=== PATIENT | female | born 1955 ===

== ENCOUNTER 2017-11-18 19:28 | Inpatient (IN) | payer MEDICAID, OTHER ==
[2017-11-18 19:42] VITALS: BMI 29.7
--- NOTE | 2017-11-18 19:46 | ED PDOC ---
"Arrival/HPI - General Historian: Patient - History of Present Illness Time/Duration: < week Symptom Onset: Gradual Symptom Course: Unchanged Quality: Burning <Anoop Dubois - Last Filed: 11/18/17 22:03> - General Historian: Patient <Isaias Carter - Last Filed: 11/18/17 22:21> - General Time Seen by Provider: 11/18/17 19:34 - History of Present Illness Narrative History of Present Illness (Text): Patient is a 62 year old female with a past medical history of diabetes, gastritis, hypertension and hypercholesterolemia is presenting to the emergency room with a complaint of left sided abdominal pain. She has been experiencing left sided abdominal pain for years but over the past couple of days the pain has started to go down the back of her left leg. The last time she experienced these symptoms, she was seen in the ED in 05/2017 and was diagnosed with a UTI. She denies any fevers, chills, nausea, vomiting, diarrhea, constipation, chest pain, shortness of breath, burning with urination, increased urinary frequency, blood in urine/stool, melena, numbness or tingling. (Anoop Dubois) Past Medical History - Provider Review Nursing Documentation Reviewed: Yes <Anoop Dubois - Last Filed: 11/18/17 22:03> Family/Social History - Physician Review Nursing Documentation Reviewed: Yes Family/Social History: Unknown Family HX <Anoop Dubois - Last Filed: 11/18/17 22:03> Allergies/Home Meds <Anoop Dubois - Last Filed: 11/18/17 22:03> <Isaias Carter - Last Filed: 11/18/17 22:21> Allergies/Adverse Reactions: Allergies No Known Allergies Allergy (Verified 11/18/17 19:42) Home Medications: Home Meds Medication Instructions Recorded Confirmed Atorvastatin [Lipitor] 1 tab PO DAILY 11/18/17 11/18/17 Losartan Potassium [Losartan 1 tab PO TID 11/18/17 11/18/17 Potassium] Naproxen Sodium [Aleve] 1 tab PO PRN PRN 11/18/17 11/18/17 Sitagliptin Phos/Metformin HCl 1 tab PO BID 11/18/17 11/18/17 [Janumet 50-1,000 mg Tablet] Review of Systems - Physician Review All systems were reviewed & negative as marked: Yes - Review of Systems Constitutional: Normal. absent: Fevers ENT: Normal. absent: Sore Throat, Sinus Congestion Respiratory: Normal. absent: SOB Cardiovascular: Normal. absent: Chest Pain, Calf Pain Gastrointestinal: Abdominal Pain. absent: Constipation, Diarrhea, Nausea, Vomiting, Hematochezia, Hematemesis Genitourinary Female: Normal. absent: Dysuria, Frequency, Hematuria Musculoskeletal: Back Pain (left low back) Skin: Normal. absent: Rash Neurological: Normal. absent: Headache Endocrine: Normal. absent: Diaphoresis Psychiatric: Normal <Anoop Dubois - Last Filed: 11/18/17 22:03> Physical Exam Vital Signs Reviewed: Yes Temperature: Afebrile Blood Pressure: Normal Pulse: Regular Respiratory Rate: Normal Appearance: Positive for: Well-Appearing, Non-Toxic, Comfortable Pain Distress: None Mental Status: Positive for: Alert and Oriented X 3 - Systems Exam Head: Present: Atraumatic, Normocephalic Extroacular Muscles: Present: EOMI Conjunctiva: Present: Normal Mouth: Present: Moist Mucous Membranes Nose (External): Present: Atraumatic Neck: Present: Normal Range of Motion Respiratory/Chest: Present: Clear to Auscultation, Good Air Exchange. No: Respiratory Distress, Accessory Muscle Use Cardiovascular: Present: Regular Rate and Rhythm, Normal S1, S2. No: Murmurs Abdomen: Present: Tenderness (LLQ> suprapubic/left mid ). No: Distention, Peritoneal Signs, Rebound, Guarding Back: Present: CVA Tenderness (left side only). No: Midline Tenderness, Paraspinal Tenderness Upper Extremity: Present: Normal Inspection. No: Cyanosis, Edema Lower Extremity: Present: Normal Inspection, NORMAL PULSES. No: Edema, CALF TENDERNESS Neurological: Present: GCS=15, Speech Normal, Motor Func Grossly Intact Skin: Present: Warm, Dry, Normal Color. No: Rashes Psychiatric: Present: Alert, Oriented x 3, Normal Insight, Normal Concentration <Anoop Dubois - Last Filed: 11/18/17 22:03> Vital Signs Temp Pulse Resp BP Pulse Ox 11/18/17 19:43 97.7 F 91 H 18 150/83 96 Medical Decision Making - Lab Interpretations I have reviewed the lab results: Yes Interpretation: Abnormal lab values - RAD Interpretation Chemical Dependency Attendant: Radiologist <Anoop Dubois - Last Filed: 11/18/17 22:03> - Lab Interpretations I have reviewed the lab results: Yes <Isaias Carter - Last Filed: 11/18/17 22:21> ED Course and Treatment: 11/18/17 20:08 Pleasant appearing female with similar complaints when seen in May 2017 - diagnosed with UTI. Labs Abd/Pel CT w/o - r/o stones/diverticulitis No indication for pain medicine at this time. 11/18/17 22:[address] negative - pancreas poorly visualized. Patient reports increased worsening of pain Toradol 30mg IVP given Discussed case with Dr. Cortés, accepted for observation of pancreatitis. (Anoop Dubois) 11/18/17 Patient Seen With Resident: In agreement with resident note which contains more details about the patient. Patient was seen and evaluated with resident. Came up with plan and treatment together. 11/18/17 22:[address] Cortés, who is aware and agrees with plan. Accepts pt in to hospitalist service. Pt will go to [facility] observation for pancreatitis. resident care associate notified. (Isaias Carter) - Lab Interpretations Lab Results: 11/18/17 20:08 11/18/17 20:08 Lab Results 11/18/17 20:08: Sodium 138, Potassium 4.4, Chloride 105, Carbon Dioxide 25, Anion Gap 12, BUN 18, Creatinine 0.6 L, Est GFR ( Amer) > 60, Est GFR ( Non-Af Amer) > 60, Random Glucose 195 H, Calcium 8.7, Magnesium 1.9, Total Bilirubin 0.6, AST 50 H, ALT 62 H, Alkaline Phosphatase 112, Total Protein 7.6, Albumin 3.9, Globulin 3.7, Albumin/Globulin Ratio 1.1, Lipase 766 H 11/18/17 20:08: WBC 6.2, RBC 4.78, Hgb 12.9, Hct 39.1, MCV 81.8, MCH 27.0, MCHC 33.0, RDW 14.1, Plt Count 212, MPV 8.8, Gran % 53.8, Lymph % (Auto) 36.1 H, Dickens % (Auto) 6.5 H, Eos % (Auto) 3.1, Baso % (Auto) 0.5, Gran # 3.34, Lymph # ( Auto) 2.2, Dickens # (Auto) 0.4, Eos # (Auto) 0.2, Baso # (Auto) 0.03 11/18/17 20:00: Urine Color Yellow, Urine Appearance Clear, Urine pH 6.0, Ur Specific [place] 1.025, Urine Protein Negative, Urine Glucose (UA) Negative, Urine Ketones Negative, Urine Blood Negative, Urine Nitrate Negative, Urine Bilirubin Negative, Urine Urobilinogen 0.2, Ur Leukocyte Esterase Small H, Urine RBC Negative, Urine WBC 2 - 5, Ur Epithelial Cells 3 - 4, Urine Bacteria Few - RAD Interpretation Narrative RAD Interpretations (Text): 11/18/17 21:44 [facility] Preliminary Radiology Report Call: [phone] assistance Online chat: [email or web address] Patient Name: JERRY AGOSTO Institution Name: [place] [address] Study Type: CT ABDOMEN/PELVIS WO Ordered As: CT ABD PELVIS W O PO OR IV CONT Date of Dictation: 18 Nov 2017 EDT Date of Exam: 18 Nov 2017 EDT Account Number: Patient : 1955 Patient Location: ED Irrigator Head: Account #: Referring Physician: Anoop DUBOIS This interpretation is based upon the receipt of 634 images. Page 1 of 2 EXAM: CT Abdomen and Pelvis Without Intravenous Contrast CLINICAL HISTORY: 62 years old, female; Pain; Abdominal pain; Flank; Left; Additional info: L sided abd pain TECHNIQUE: Axial computed tomography images of the abdomen and pelvis without intravenous contrast. All CT scans at this facility use at least one of these dose optimization techniques: automated exposure control; mA and/or kV adjustment per patient size (includes targeted exams where dose is matched to clinical indication); or iterative reconstruction. COMPARISON: No relevant prior studies available. FINDINGS: Limitations: Limited evaluation due to lack of IV contrast. Lung bases: Unremarkable. No mass. No consolidation. ABDOMEN: Liver: The liver is heterogenous in appearance. Gallbladder and bile ducts: Unremarkable. No calcified stones. No ductal dilation. Pancreas: Pancreas evaluation is limited. No ductal dilation. Spleen: Unremarkable. No splenomegaly. Adrenals: Unremarkable. No mass. Kidneys and ureters: Subcentimeter low-density lesion in the kidneys are too small to characterize. No obstructing stones. No hydronephrosis. Stomach and bowel: Bowel evaluation is limited due to lack of distention. No mucosal thickening. PELVIS: Appendix: No findings to suggest acute appendicitis. Bladder: Unremarkable. No stones. Reproductive: Unremarkable as visualized. JERRY AGOSTO | Preliminary Radiology Report COMMERCIAL SINGER (QA) DISCREPANCY? If there is a discrepancy between the preliminary and final interpretation, please notify [email or web address] via [email or web address]. If you do not have access to our QA portal, call our QA team at [phone] CONFIDENTIALITY STATEMENT This report is intended only for the use of the referring physician, and only in accordance with law, If you received this in error, call [phone] Page 2 of 2 ABDOMEN and PELVIS: Intraperitoneal space: Unremarkable. No free air. No significant fluid collection. Bones/joints: Slight anterolisthesis of L5 on S1. No acute fracture. No dislocation. Soft tissues: Unremarkable. Vasculature: Atherosclerotic changes of the aorta. No abdominal aortic aneurysm. Lymph nodes: Unremarkable. No enlarged lymph nodes. IMPRESSION: No acute findings. Thank you for allowing us to participate in the care of your patient. Dictated and Authenticated by: Amelia Douglas MD 11/18/2017 9:31 PM Eastern Time ([place] & [place]) (Anoop Dubois) Radiology Orders: 11/18/17 19:50 ABD & PELVIS W/O PO OR IV CONT [CT] Stat - Medication Orders Current Medication Orders: Discontinued Medications Ketorolac Tromethamine (Toradol) 30 mg IVP STAT STA Stop: 11/18/17 21:57 <Anoop Dubois - Last Filed: 11/18/17 22:03> - PA / SENIOR SALES ADMINISTRATOR / Resident Statement / has reviewed & agrees with the documentation as recorded. / has examined the patient and agrees with the treatment plan. - Scribe Statement The provider has reviewed the documentation as recorded by the Scribe <Isaias Carter - Last Filed: 11/18/17 22:21> - Scribe Statement Romeo Bowser Provider Scribe Attestation: All medical record entries made by the Scribe were at my direction and personally dictated by me. I have reviewed the chart and agree that the record accurately reflects my personal performance of the history, physical exam, medical decision making, and the department course for this patient. I have also personally directed, reviewed, and agree with the discharge instructions and disposition. (Isaias Carter) Disposition/Present on Arrival - Present on Arrival Any Indicators Present on Arrival: Yes History of DVT/PE: No History of Uncontrolled Diabetes: Yes Urinary Catheter: No History of Decub. Ulcer: No - Disposition Have Diagnosis and Disposition been Completed?: Yes Disposition Time: 22:08 Patient Plan: Admission <Anoop Dubois - Last Filed: 11/18/17 22:03> <Isaias Carter - Last Filed: 11/18/17 22:21> - Disposition Diagnosis: Pancreatitis Disposition: HOSPITALIZED Patient Problems: Current Active Problems Problem Status Onset Pancreatitis Acute Condition: GUARDED"
[2017-11-18 20:27] LABS: HEMOGLOBIN 12.9 g/dL (12.0-16.0); MEAN CELL VOLUME 81.8 fl (80.0-105.0); RBC 4.78 10^6/uL (3.5-6.1); WHITE BLOOD COUNT 6.2 10^3/ul (4.5-11.0)
[2017-11-18 20:28] LABS: BASO # 0.03 K/mm3 (0.0-2.0); BASO % 0.5 % (0.0-3.0); EOS # 0.2 (0.0-0.7); EOS % 3.1 % (1.5-5.0); GRAN # 3.34 (1.4-6.5); GRAN % 53.8 % (50.0-68.0); LYMPH # 2.2 (1.2-3.4); LYMPH % 36.1 % (22.0-35.0); MEAN PLATELET VOLUME 8.8 fl (7.0-11.0); MONO # 0.4 (0.1-0.6); MONO % 6.5 % (1.0-6.0); RED CELL DISTRIBUTION WIDTH 14.1 % (11.5-14.5)
[2017-11-18 20:32] LABS: ALB/GLOB RATIO 1.1 (1.1-1.8); ALBUMIN 3.9 g/dL (3.0-4.8); ALT/SGPT 62 U/L (7-56); AST/SGOT 50 U/L (14-36); BLOOD UREA NITROGEN 18 mg/dL (7-21); CALCIUM 8.7 mg/dL (8.4-10.5); GFR AFRICAN-AMERICAN > 60; GFR NON-AFRICAN AMERICAN > 60; LIPASE 766 U/L (23-300)
[2017-11-18 20:40] LABS: URINE APPEARANCE CLEAR (CLEAR); URINE COLOR YELLOW (YELLOW); URINE GLUCOSE (UA) NEGATIVE (NEGATIVE)
[2017-11-18 20:51] LABS: URINE BILIRUBIN NEGATIVE (NEGATIVE); URINE BLOOD NEGATIVE (NEGATIVE); URINE LEUKOCYTE ESTERASE SMALL Leu/uL (NEGATIVE); URINE PROTEIN NEGATIVE mg/dL (<30 mg/dL); URINE UROBILINOGEN 0.2 E.U./dL (<1 E.U./dL)
[2017-11-18 21:08] LABS: URINE BACTERIA FEW (NEG); URINE RBC NEGATIVE /hpf (0-2)
[2017-11-18] MEDS ORDERED: Morphine 2 mg/ml ISec IVP PRN (22:44)
--- NOTE | 2017-11-18 23:24 | CP.PCM.HP ---
<TazLuis - Last Filed: 11/19/17 02:06> History of Present Illness - History of Present Illness History of Present Illness: LUIS CHURCHILL D.O. PGY-1, HISTORY & PHYSICAL PROGRESS NOTE FOR HOSPITALIST TEAM CC: Abdominal pain associated with back pain x 3 days 62 y/o panamanian speaking F with pmhx of Diverticulosis, Diverticulitis, DM, HTN, HLD presents to ED with complaints of LLQ abdominal pain that she describes as "colon pain" that she has noticed for the past 3 days. She describes it as a severe constant, non-radiating pain, aggravated with palpation and not alleviated with anything. She states she has had similar pain like this previously when she was previously diagnosed with diverticulitis. She denies any new food consumption, recent travel or recent illness. She denies fevers, chills, nausea, vomiting, headache, dizziness, chest pain, palpitations, constipation, diarrhea. PMD: None. [facility] for med refills PMH: Diverticulosis, Diverticulitis, HTN, DM, HLD PSH: Denies SH: Denies smoking, alcohol, drug use Allergies: NKDA Meds: Present on Admission - Present on Admission Any Indicators Present on Admission: No Review of Systems - Review of Systems All systems: reviewed and no additional remarkable complaints except (as per HPI , otherwise negative) Past Patient History - Past Social History Smoking Status: Never Smoked - CARDIAC Hx Hypertension: Yes - ENDOCRINE/METABOLIC Hx Diabetes Mellitus Type 1: Yes - PSYCHIATRIC Hx Substance Use: No - SURGICAL HISTORY Hx Surgeries: No - ANESTHESIA Hx Anesthesia: No Meds Allergies/Adverse Reactions: Allergies Allergy/AdvReac Type Severity Reaction Status Date / Time No Known Allergies Allergy Verified 11/18/17 19:42 Physical Exam - Constitutional Appears: Well, Non-toxic, No Acute Distress - Head Exam Head Exam: ATRAUMATIC, NORMAL INSPECTION - Eye Exam Eye Exam: EOMI, Normal appearance - ENT Exam ENT Exam: Mucous Membranes Moist, Normal Exam - Neck Exam Neck exam: Positive for: Normal Inspection. Negative for: Meningismus - Respiratory Exam Respiratory Exam: Clear to Auscultation Bilateral, NORMAL BREATHING PATTERN - Cardiovascular Exam Cardiovascular Exam: REGULAR RHYTHM, +S1, +S2 - GI/Abdominal Exam GI & Abdominal Exam: Normal Bowel Sounds, Soft, Tenderness (LLQ to palpation). absent: Rebound, Rigid - Extremities Exam Extremities exam: Positive for: normal inspection. Negative for: calf tenderness, joint swelling, pedal edema - Neurological Exam Neurological exam: Alert, Oriented x3 - Psychiatric Exam Psychiatric exam: Normal Affect, Normal Mood - Skin Skin Exam: Dry, Intact, Warm Results - Vital Signs Recent Vital Signs: Last Vital Signs Temp 97.7 F 11/18/17 19:43 Pulse 81 11/18/17 22:48 Resp 18 11/18/17 22:48 BP 122/75 11/18/17 22:48 Pulse Ox 98 11/18/17 23:03 - Labs Result Diagrams: 11/18/17 20:08 11/18/17 20:08 Assessment & Plan - Assessment and Plan (Free Text) Assessment: 62 y/o panamanian speaking F with pmhx of Diverticulosis, Diverticulitis, DM, HTN, HLD admitted to abdominal pain secondary to pancreatitis vs diverticulitis. Plan: Abdominal Pain Lipase: 766, CT Abdomen: Pancreas evaluation is limited. No ductal dilation. No acute findings. Likely secondary to diverticulitis. Pancreatitis less likely Start ceftriaxone, metronidazole Start NaCl @100mL Start Morphine 2mg IVP Q4Hprn f/u am amylase/lipase f/u Abd/Pelvis U/S GI consult: Elena NPO Diet DM Start medium dose insulin sliding scale fingerstick bs q6H HTN Hold home losartan HLD Hold home atorvastatin f/u lipid panel DVT/GI ppx: Lovenox/Protonix <Dusty Cortés - Last Filed: 11/19/17 02:34> Results - Vital Signs Recent Vital Signs: Last Vital Signs Temp 97.3 F L 11/18/17 23:27 Pulse 73 11/18/17 23:27 Resp 18 11/18/17 23:27 BP 140/76 11/18/17 23:27 Pulse Ox 98 11/18/17 23:03 - Labs Result Diagrams: 11/18/17 20:08 11/18/17 20:08 Labs: Laboratory Results - last 24 hr 11/19/17 00:05 POC Glucose (mg/dL) 156 H Attending/Attestation - Attestation I have personally seen and examined this patient.: Yes I have fully participated in the care of the patient.: Yes I have reviewed all pertinent clinical information: Yes Notes (Text): 11/19/17 01:06 Patient was seen when she was in bed # 6 in the ER. Agree with history ,physical examination, assessment and plan. 62 year old woman with complaints of left side pain luq pain llq pain constipation nausea Elevated lipase level 766 AST50 ALT62 Glucose 195 PMH: HTN DM HLD History of UTI Overweight 29.7BMI Hx of colonoscopy Alcohol use ocassionally PMD -Elodia Hill. 11/19/17 02:34 Note was reviewed again.
[2017-11-18] MEDS ORDERED: Sodium Chloride 0.9% 1,000 ML IV SCH (23:30)
[2017-11-19] MEDS: Insulin Reg-MEDIUM-Coverage SC SCH ×5 (06:00→23:36)
[2017-11-19] MEDS: metroNIDAZOLE IV 500 mg/100 ml 500 MG/100 ML BAG IVPB SCH ×3 (06:33→21:07)
[2017-11-19 06:53] LABS: BASO # 0.02 K/mm3 (0.0-2.0); BASO % 0.4 % (0.0-3.0); EOS # 0.2 (0.0-0.7); EOS % 3.8 % (1.5-5.0); GRAN # 2.83 (1.4-6.5); HEMOGLOBIN 12.3 g/dL (12.0-16.0); LYMPH % 35.1 % (22.0-35.0); MEAN CELL VOLUME 82.2 fl (80.0-105.0); MEAN CORPUSCULAR HEMOGLOBIN 26.4 pg (25.0-35.0); MEAN CORPUSCULAR HGB CONC 32.1 g/dl (31.0-37.0); MEAN PLATELET VOLUME 8.9 fl (7.0-11.0); MONO # 0.5 (0.1-0.6); MONO % 9.7 % (1.0-6.0); RBC 4.66 10^6/uL (3.5-6.1); RED CELL DISTRIBUTION WIDTH 14.3 % (11.5-14.5); WHITE BLOOD COUNT 5.6 10^3/ul (4.5-11.0)
[2017-11-19 07:12] LABS: LDL CHOLESTEROL 75 mg/dL (0-129)
[2017-11-19 07:17] LABS: ALB/GLOB RATIO 1.1 (1.1-1.8); ALBUMIN 3.6 g/dL (3.0-4.8); ALT/SGPT 55 U/L (7-56); AMYLASE 96 U/L (35-125); AST/SGOT 48 U/L (14-36); BLOOD UREA NITROGEN 17 mg/dL (7-21); CALCIUM 8.5 mg/dL (8.4-10.5); GFR AFRICAN-AMERICAN > 60; GFR NON-AFRICAN AMERICAN > 60; HDL CHOLESTEROL 36 mg/dL (29-60); LIPASE 129 U/L (23-300)
--- NOTE | 2017-11-19 08:10 | CT ---
Date of service: 11/18/2017 PROCEDURE: CT Abdomen and Pelvis without intravenous contrast HISTORY: L sided abd pain COMPARISON: None. TECHNIQUE: Without contrast.. Contrast dose: Radiation dose: Total exam DLP = 459 mGy-cm. This CT exam was performed using one or more of the following dose reduction techniques: Automated exposure control, adjustment of the mA and/or kV according to patient size, and/or use of iterative reconstruction technique. FINDINGS: LOWER THORAX: Unremarkable. LIVER: Unremarkable. No gross lesion or ductal dilatation. GALLBLADDER AND BILE DUCTS: Unremarkable. PANCREAS: Unremarkable. No gross lesion or ductal dilatation. SPLEEN: Unremarkable. ADRENALS: Unremarkable. No mass. KIDNEYS AND URETERS: Unremarkable. No hydronephrosis. No solid mass. VASCULATURE: Unremarkable. No aortic aneurysm. BOWEL: Unremarkable. No obstruction. No gross mural thickening. There is diverticulosis of the sigmoid colon APPENDIX: Unremarkable. Normal appendix. PERITONEUM: Unremarkable. No free fluid. No free air. LYMPH NODES: Unremarkable. No enlarged lymph nodes. BLADDER: Unremarkable. REPRODUCTIVE: Unremarkable. BONES: No acute fracture. OTHER FINDINGS: The report concurs with the preliminary [facility] report IMPRESSION: No acute intra-abdominal findings
--- NOTE | 2017-11-19 08:38 | US ---
Date of service: 11/19/2017 HISTORY: Abdominal pain COMPARISON: None. TECHNIQUE: Grayscale imaging was performed. FINDINGS: LIVER: Measures 14.8 cm in length. There is diffuse increased echogenicity of the liver parenchyma. No mass. No intrahepatic bile duct dilatation. GALLBLADDER: There are no gallstones, wall thickening or pericholecystic fluid. The sonographic Blackwell's sign is negative. COMMON BILE DUCT: Measures 5.5 mm. No stones. No dilatation. PANCREAS: Unremarkable as visualized. No mass. No ductal dilatation. RIGHT KIDNEY: Measures 10.9 cm in length. Normal echogenicity. No calculus, mass, or hydronephrosis. AORTA: No aneurysmal dilatation. IVC: Unremarkable. OTHER FINDINGS: None . IMPRESSION: No cholelithiasis or biliary dilatation Diffuse increased echogenicity in the liver may reflect hepatic steatosis however parenchymal infectious/ inflammatory etiologies cannot be entirely excluded. Clinical and laboratory correlation is advised.
--- NOTE | 2017-11-19 08:49 | CP.PCM.PN ---
<Adama Ryder - Last Filed: 11/19/17 12:18> Subjective - Date & Time of Evaluation Date of Evaluation: 11/19/17 Time of Evaluation: 08:46 - Subjective Subjective: Adama Ryder, PGY-1, Internal Medicine note for Dr. Garvey Patient seen and examined this morning. Patient had no acute overnight events. Patient reports left flank pain, left lower abdominal pain, pain that radiates down the left leg, nausea, and constipation. Patient denies headache, dizziness , chest pain, heart palpitations, shortness of breath, vomiting, diarrhea, dysuria, and hematuria. Objective - Vital Signs/Intake and Output Vital Signs (last 24 hours): Temp Pulse Resp BP Pulse Ox 97.6 F 72 18 134/75 95 11/19/17 06:00 11/19/17 06:00 11/19/17 06:00 11/19/17 06:00 11/19/17 06:00 Intake and Output: 11/19/17 11/19/17 06:59 18:59 Intake Total 360 Balance 360 - Medications Medications: Current Medications Enoxaparin Sodium (Lovenox) 40 mg SC DAILY [facility] PRN Reason: Protocol Metronidazole (Flagyl) 500 mg in 100 mls @ 100 mls/hr IVPB Q8 [facility] PRN Reason: Protocol Last Admin: 11/19/17 06:33 Dose: 100 mls/hr Ceftriaxone Sodium (Rocephin 1 Gram Ivpb) 1 gm in 100 mls @ 100 mls/hr IVPB DAILY [facility] PRN Reason: Protocol Sodium Chloride (Sodium Chloride 0.9%) 1,000 mls @ 60 mls/hr IV .[id number] [facility] Insulin Human Regular (Humulin R Med) 0 units SC Q6 [facility] PRN Reason: Protocol Ketorolac Tromethamine (Toradol) 30 mg IVP Q6H PRN PRN Reason: Pain, moderate (4-7) Morphine Sulfate (Morphine) 2 mg IVP Q4H PRN PRN Reason: Pain, severe (8-10) Pantoprazole Sodium (Protonix Inj) 40 mg IVP DAILY [facility] - Labs Labs: 11/19/17 06:10 11/19/17 06:10 - Constitutional Appears: Well, Non-toxic - Head Exam Head Exam: ATRAUMATIC, NORMOCEPHALIC - Eye Exam Eye Exam: EOMI Pupil Exam: PERRL - ENT Exam ENT Exam: Mucous Membranes Moist - Respiratory Exam Respiratory Exam: Clear to Ausculation Bilateral, NORMAL BREATHING PATTERN - Cardiovascular Exam Cardiovascular Exam: REGULAR RHYTHM, RRR - GI/Abdominal Exam GI & Abdominal Exam: Soft, Tenderness (left lower quadrant), Normal Bowel Sounds - Extremities Exam Extremities Exam: Full ROM Additional comments: trace bilateral lower extremity pitting edema - Back Exam Back Exam: CVA tenderness (L) Additional comments: negative straight leg test - Neurological Exam Neurological Exam: Alert, Awake, CN II-XII Intact, Oriented x3 Neuro motor strength exam: Left Upper Extremity: 5, Right Upper Extremity: 5, Left Lower Extremity: 5, Right Lower Extremity: 5 - Psychiatric Exam Psychiatric exam: Normal Affect, Normal Mood - Skin Skin Exam: Dry, Intact, Normal Color Assessment and Plan - Assessment and Plan (Free Text) Assessment: 62 year old female with past medical history of diverticulitis, diverticulosis, diabetes, hypertension, hyperlipidemia presents with left flank pain, left lower quadrant pain that radiates down left leg for 3 days. Plan: Flank pain and left lower quadrant pain 2/2 to nephrolithiasis vs. musculoskeletal vs. diverticulitis vs. pancreatitis vs. pyelonephritis -Patient has had a history of diverticulitis 6-7 years ago. Patient had a colonoscopy at this time. -Patient has a history of UTIs in the past. -CT Abdomen (11/18): atherosclerosis of aorta, bowel evaluation limited due to lack of distention, no mucosal thickening, pancreas evaluation limited -UA (11/18): small leukocyte esterase, few bacteria, no blood -Gallbladder Ultrasound (11/18): no cholelithiasis, no biliary dilatation. Diffuse echogenicity of liver may reflect hepatic steatosis however parenchymal infectious/inflammatory etiologies cannot be excluded. -Lipase: 766 on 11/18. Today, lipase is 130. -SIRS criteria not fulfilled. Temperature: 97.6, HR: 72, RR: 18, and WBC: 5.6 -Ceftriaxone and metronidazole for possible diverticulitis. -Morphine 2mg IV Q4PRN for pain. -Toradol 30 mg PO Q6PRN for pain. -Patient educated regarding constipation. Patient reports having been educated in the past and has had the appropriate diet. -Patient does not fulfill pancreatitis criteria. CT and clinically negative. Patient had elevated lipase, however. Elevated lipase has resolved. -Dr. Parker consulted for GI evaluation. Follow recommendations. -Per GI, this could be a combination of constipation and diverticulitis. Transamnitis 2/2 to hepatic steatosis vs. atorvastatin use -AST: 48 from 50 on 11/18 -ALT: 55 from 62 on 11/18. Resolved ALT elevation -ALP: 98 from 112 on 11/18. -Bilirubin: 0.5 from 0.6 on 11/18 -Continue to trend. Chronic Constipation -Patient has one bowel movement every other day generally. She continues to have one bowel movement every other day at the hospital. -Miralax 17 gm BID as per GI. -Patient progressed to full liquid diet from clear liquid. History of Diabetes Mellitus Type 2 -Patient's last blood glucose level was 126. -Patient has been placed on a regular insulin regimen Q6 History of Hypertension -Blood pressure on 11/19: 134/75 -Patient is currently not on any medications. History of Hyperlipidemia -CT of abdomen showed atherosclerosis of the aorta -Patient currently not on any medication. Disposition -PMD: [facility] -Patient has applied for [employer]. -Social work consulted for assistance with payment for medical services. Patient seen and evaluated with Dr. Garvey. <Luciano Garvey - Last Filed: 11/21/17 11:37> Objective - Vital Signs/Intake and Output Vital Signs (last 24 hours): Temp Pulse Resp BP Pulse Ox 98.1 F 69 18 155/85 H 96 11/20/17 14:00 11/20/17 14:00 11/20/17 14:00 11/20/17 14:00 11/20/17 14:00 Intake and Output: 11/20/17 11/20/17 06:59 18:59 Intake Total 0 600 Balance 0 600 - Medications Medications: Current Medications Enoxaparin Sodium (Lovenox) 40 mg SC DAILY [facility] PRN Reason: Protocol Last Admin: 11/20/17 09:41 Dose: 40 mg Metronidazole (Flagyl) 500 mg in 100 mls @ 100 mls/hr IVPB Q8 [facility] PRN Reason: Protocol Last Admin: 11/20/17 06:29 Dose: 100 mls/hr Ceftriaxone Sodium (Rocephin 1 Gram Ivpb) 1 gm in 100 mls @ 100 mls/hr IVPB DAILY [facility] PRN Reason: Protocol Last Admin: 11/20/17 09:42 Dose: 100 mls/hr Sodium Chloride (Sodium Chloride 0.9%) 1,000 mls @ 60 mls/hr IV .[id number] [facility] Last Admin: 11/20/17 09:43 Dose: 60 mls/hr Insulin Human Regular (Humulin R Med) 0 units SC Q6 [facility] PRN Reason: Protocol Last Admin: 11/20/17 12:02 Dose: Not Given Ketorolac Tromethamine (Toradol) 30 mg IVP Q6H PRN PRN Reason: Pain, moderate (4-7) Morphine Sulfate (Morphine) 2 mg IVP Q4H PRN PRN Reason: Pain, severe (8-10) Pantoprazole Sodium (Protonix Ec Tab) 40 mg PO 0600 [facility] Last Admin: 11/20/17 06:31 Dose: 40 mg Polyethylene Glycol (Miralax) 17 gm PO BID [facility] Last Admin: 11/20/17 09:41 Dose: 17 gm - Labs Labs: 11/20/17 06:20 11/20/17 06:20 Attending/Attestation - Attestation I have personally seen and examined this patient.: Yes I have fully participated in the care of the patient.: Yes I have reviewed all pertinent clinical information, including history, physical exam and plan: Yes Notes (Text): 11/20/17 15:11 attending note; Patient seen and examined with resident. Patient is a 62-year-old female with a past medical history of diverticulitis, constipation is admitted with left lower quadrant pain. CT scan is consistent with diverticulosis. possible mild diverticulitis suspected. Continue IV fluids. IV pain medication as needed. Started on IV Rocephin and Flagyl. GI evaluation appreciated. Needs outpatient colonoscopy. Patient had a colonoscopy over 7 years ago in [facility] with no significant findings other than diverticulosis. Mildly elevated lipase; less likely pancreatitis. blood, urine culture ordered.. Negative so far. Start clear liquid diet. Advance as tolerated. Upon discharge patient will follow-up with [facility] clinic. Patient will follow up with GI clinic for outpatient colonoscopy. 11/21/17 11:37
--- NOTE | 2017-11-19 09:21 | CP.PCM.CON ---
History of Present Illness - History of Present Illness History of Present Illness: GI Fellow PGY5 Consult Note This is a 62yF with pmhx of diverticulosis and possible diverticulitis 6yrs agio , DM, HTN, HLD who presents to ED with complaints of LLQ abdominal pain for the past 3 days. She describes it as a severe constant, radiating to back, aggravated with palpation and not alleviated with anything. She states she has had similar pain like this previously when she was previously diagnosed with [facility] At that time she had a colonoscopy that was negative per pt, no records for review. She also reports constipation with straining and last BM was 2 days ago. She denies any rectal bleeding. She denies any new food consumption, recent travel or recent illness. She denies fevers, chills, nausea, vomiting, headache, dizziness, chest pain, palpitations , constipation, diarrhea. ROS: A 12pt ROS was negative except as above PMH: As stated above PSH: Denies SH: Denies smoking, alcohol, drug use FH: Neg for colon cancer Past Patient History - Past Social History Smoking Status: Never Smoked - CARDIAC Hx Hypertension: Yes - ENDOCRINE/METABOLIC Hx Diabetes Mellitus Type 1: Yes - MUSCULOSKELETAL/RHEUMATOLOGICAL Hx Falls: No - GASTROINTESTINAL Other/Comment: gastritis - GENITOURINARY/GYNECOLOGICAL Hx Urinary Tract Infection: Yes - PSYCHIATRIC Hx Substance Use: No - SURGICAL HISTORY Hx Surgeries: No - ANESTHESIA Hx Anesthesia: No Meds Allergies/Adverse Reactions: Allergies Allergy/AdvReac Type Severity Reaction Status Date / Time No Known Allergies Allergy Verified 11/18/17 19:42 - Medications Medications: Current Medications Enoxaparin Sodium (Lovenox) 40 mg SC DAILY [facility] PRN Reason: Protocol Metronidazole (Flagyl) 500 mg in 100 mls @ 100 mls/hr IVPB Q8 [facility] PRN Reason: Protocol Last Admin: 11/19/17 06:33 Dose: 100 mls/hr Ceftriaxone Sodium (Rocephin 1 Gram Ivpb) 1 gm in 100 mls @ 100 mls/hr IVPB DAILY [facility] PRN Reason: Protocol Sodium Chloride (Sodium Chloride 0.9%) 1,000 mls @ 60 mls/hr IV .[id number] [facility] Insulin Human Regular (Humulin R Med) 0 units SC Q6 [facility] PRN Reason: Protocol Ketorolac Tromethamine (Toradol) 30 mg IVP Q6H PRN PRN Reason: Pain, moderate (4-7) Morphine Sulfate (Morphine) 2 mg IVP Q4H PRN PRN Reason: Pain, severe (8-10) Pantoprazole Sodium (Protonix Inj) 40 mg IVP DAILY [facility] Polyethylene Glycol (Miralax) 17 gm PO BID [facility] Physical Exam - Constitutional Appears: Non-toxic, No Acute Distress - Head Exam Head Exam: ATRAUMATIC, NORMAL INSPECTION, NORMOCEPHALIC - Eye Exam Eye Exam: EOMI, Normal appearance, PERRL - ENT Exam ENT Exam: Mucous Membranes Moist, Normal Exam - Neck Exam Neck exam: Positive for: Full Rom, Normal Inspection - Respiratory Exam Respiratory Exam: Clear to Auscultation Bilateral, NORMAL BREATHING PATTERN - Cardiovascular Exam Cardiovascular Exam: REGULAR RHYTHM, RRR, +S1, +S2 - GI/Abdominal Exam GI & Abdominal Exam: Normal Bowel Sounds, Soft, Tenderness. absent: Distended, Firm, Guarding, Organomegaly - Rectal Exam Rectal Exam: Deferred - Extremities Exam Extremities exam: Positive for: full ROM, normal inspection - Back Exam Back exam: NORMAL INSPECTION - Neurological Exam Neurological exam: Alert, Oriented x3 - Psychiatric Exam Psychiatric exam: Normal Affect, Normal Mood - Skin Skin Exam: Dry, Intact, Normal Color, Warm Results - Vital Signs Recent Vital Signs: Last Vital Signs Temp 97.6 F 11/19/17 06:00 Pulse 72 11/19/17 06:00 Resp 18 11/19/17 06:00 BP 134/75 11/19/17 06:00 Pulse Ox 95 11/19/17 06:00 - Labs Result Diagrams: 11/19/17 06:10 11/19/17 06:10 Labs: Laboratory Results - last 24 hr 11/19/17 11/19/17 11/19/17 00:05 06:10 06:10 WBC 5.6 RBC 4.66 Hgb 12.3 Hct 38.3 MCV 82.2 MCH 26.4 MCHC 32.1 RDW 14.3 Plt Count 212 MPV 8.9 Gran % 51.0 Lymph % (Auto) 35.1 H Kendall % (Auto) 9.7 H Eos % (Auto) 3.8 Baso % (Auto) 0.4 Gran # 2.83 Lymph # (Auto) 2.0 Kendall # (Auto) 0.5 Eos # (Auto) 0.2 Baso # (Auto) 0.02 Sodium 142 Potassium 4.2 Chloride 106 Carbon Dioxide 28 Anion Gap 13 BUN 17 Creatinine 0.5 L Est GFR ( Amer) > 60 Est GFR (Non-Af Amer) > 60 POC Glucose (mg/dL) 156 H Random Glucose 133 H Calcium 8.5 Phosphorus 3.3 Magnesium 2.1 Total Bilirubin 0.5 AST 48 H ALT 55 Alkaline Phosphatase 98 Total Protein 7.0 Albumin 3.6 Globulin 3.4 Albumin/Globulin Ratio 1.1 Triglycerides 151 Cholesterol 149 LDL Cholesterol Direct 75 HDL Cholesterol 36 Amylase 96 Lipase 129 11/19/17 06:23 WBC RBC Hgb Hct MCV MCH MCHC RDW Plt Count MPV Gran % Lymph % (Auto) Kendall % (Auto) Eos % (Auto) Baso % (Auto) Gran # Lymph # (Auto) Kendall # (Auto) Eos # (Auto) Baso # (Auto) Sodium Potassium Chloride Carbon Dioxide Anion Gap BUN Creatinine Est GFR ( Amer) Est GFR (Non-Af Amer) POC Glucose (mg/dL) 126 H Random Glucose Calcium Phosphorus Magnesium Total Bilirubin AST ALT Alkaline Phosphatase Total Protein Albumin Globulin Albumin/Globulin Ratio Triglycerides Cholesterol LDL Cholesterol Direct HDL Cholesterol Amylase Lipase Assessment & Plan - Assessment and Plan (Free Text) Assessment: This is a 62yF presenting with complaints of left sided abdominal pain for three days. 1. Abdominal pain- constipation vs diverticulitis 2. Constipation 3. Diverticulosis 4. Fatty Liver Plan: -Continue supportive care with pain control and anti-emetics -CT imaging is w/o contrast so difficult to evaluate pancreas and colon, +stool and sigmoid diverticulosis -Abd US negative for gallstones, +hepatic steatosis -LFTs trending down -Pt clinically stable, afebrile with no leukocytosis -Abdominal pain maybe multifactorial from constipation and possible diverticulitis -Recommend bowel regimen with mirlaalx bid -Okay to continue abx at this time -Advance to clear liquid diet -Pt will need outpt colonoscopy in 6-8 weeks -Elevated lipase is nonspecific and has trended down, no dx of pancraetitis -Pt will need to followup at GI clinic -Will continue to follow pt closely
[2017-11-19] MEDS: cefTRIAXone 1 gm 1 GM/100 ML BAG IVPB SCH (10:06)
[2017-11-19] MEDS: Enoxaparin 40 mg Syringe SC SCH (10:06)
[2017-11-19] MEDS: POLYETHYLENE GLYCOL 3350 17 GM/Dose PACKET PO SCH ×2 (10:07→17:09)
[2017-11-19] MEDS: Sodium Chloride 0.9% 1,000 ML IV SCH (10:08)
[2017-11-20] MEDS: metroNIDAZOLE IV 500 mg/100 ml 500 MG/100 ML BAG IVPB SCH ×3 (06:29→21:21)
[2017-11-20] MEDS: Insulin Reg-MEDIUM-Coverage SC SCH ×3 (06:30→18:02)
[2017-11-20] MEDS: Pantoprazole 40 mg EC Tab PO SCH (06:31)
[2017-11-20 07:04] LABS: BASO # 0.02 K/mm3 (0.0-2.0); BASO % 0.4 % (0.0-3.0); EOS # 0.2 (0.0-0.7); EOS % 3.8 % (1.5-5.0); GRAN # 2.3 (1.4-6.5); GRAN % 48.5 % (50.0-68.0); HEMOGLOBIN 12.7 g/dL (12.0-16.0); LYMPH # 1.8 (1.2-3.4); LYMPH % 38.2 % (22.0-35.0); MEAN CELL VOLUME 81.9 fl (80.0-105.0); MEAN CORPUSCULAR HEMOGLOBIN 26.5 pg (25.0-35.0); MEAN CORPUSCULAR HGB CONC 32.3 g/dl (31.0-37.0); MEAN PLATELET VOLUME 8.8 fl (7.0-11.0); MONO # 0.4 (0.1-0.6); MONO % 9.1 % (1.0-6.0); RBC 4.8 10^6/uL (3.5-6.1); RED CELL DISTRIBUTION WIDTH 14.2 % (11.5-14.5); WHITE BLOOD COUNT 4.7 10^3/ul (4.5-11.0)
[2017-11-20 07:30] LABS: ALB/GLOB RATIO 1.1 (1.1-1.8); ALBUMIN 3.7 g/dL (3.0-4.8); ALT/SGPT 74 U/L (7-56); AST/SGOT 60 U/L (14-36); BLOOD UREA NITROGEN 11 mg/dL (7-21); CALCIUM 8.7 mg/dL (8.4-10.5); GFR AFRICAN-AMERICAN > 60; GFR NON-AFRICAN AMERICAN > 60
--- NOTE | 2017-11-20 09:24 | CP.PCM.PN ---
<Adama Ryder - Last Filed: 11/20/17 14:57> Subjective - Date & Time of Evaluation Date of Evaluation: 11/20/17 Time of Evaluation: 09:21 - Subjective Subjective: Adama Ryder, PGY-1, Internal Medicine note for Dr. Garvey Patient seen and examined at bedside. No acute overnight events. Patient reports left lower quadrant abdominal pain, frontal headache with no radiation, malodor of urine, and constipation (last bowel movement was 3 days ago). Patient denies dizziness, fever, chest pain, heart palpitations, shortness of breath, nausea, vomiting, diarrhea, dysuria, and hematuria. Objective - Vital Signs/Intake and Output Vital Signs (last 24 hours): Temp Pulse Resp BP Pulse Ox 98 F 62 20 136/75 98 11/20/17 06:00 11/20/17 06:00 11/20/17 06:00 11/20/17 06:00 11/20/17 06:00 Intake and Output: 11/20/17 11/20/17 06:59 18:59 Intake Total 0 Balance 0 - Medications Medications: Current Medications Enoxaparin Sodium (Lovenox) 40 mg SC DAILY [facility] PRN Reason: Protocol Last Admin: 11/19/17 10:06 Dose: 40 mg Metronidazole (Flagyl) 500 mg in 100 mls @ 100 mls/hr IVPB Q8 [facility] PRN Reason: Protocol Last Admin: 11/20/17 06:29 Dose: 100 mls/hr Ceftriaxone Sodium (Rocephin 1 Gram Ivpb) 1 gm in 100 mls @ 100 mls/hr IVPB DAILY [facility] PRN Reason: Protocol Last Admin: 11/19/17 10:06 Dose: 100 mls/hr Sodium Chloride (Sodium Chloride 0.9%) 1,000 mls @ 60 mls/hr IV .[id number] [facility] Last Admin: 11/19/17 10:08 Dose: 60 mls/hr Insulin Human Regular (Humulin R Med) 0 units SC Q6 [facility] PRN Reason: Protocol Last Admin: 11/20/17 06:30 Dose: Not Given Ketorolac Tromethamine (Toradol) 30 mg IVP Q6H PRN PRN Reason: Pain, moderate (4-7) Morphine Sulfate (Morphine) 2 mg IVP Q4H PRN PRN Reason: Pain, severe (8-10) Pantoprazole Sodium (Protonix Ec Tab) 40 mg PO 0600 [facility] Last Admin: 11/20/17 06:31 Dose: 40 mg Polyethylene Glycol (Miralax) 17 gm PO BID [facility] Last Admin: 11/19/17 17:09 Dose: 17 gm - Labs Labs: 11/20/17 06:20 11/20/17 06:20 - Constitutional Appears: Well - Head Exam Head Exam: ATRAUMATIC, NORMOCEPHALIC - Eye Exam Eye Exam: EOMI, PERRL - Respiratory Exam Respiratory Exam: Clear to Ausculation Bilateral, NORMAL BREATHING PATTERN - Cardiovascular Exam Cardiovascular Exam: REGULAR RHYTHM - GI/Abdominal Exam GI & Abdominal Exam: Soft, Tenderness (LLQ improved from yesterday. No guarding or rebound.), Normal Bowel Sounds - Extremities Exam Extremities Exam: Full ROM - Back Exam Back Exam: absent: CVA tenderness (L), CVA tenderness (R) - Neurological Exam Neurological Exam: Alert, Awake, CN II-XII Intact, Oriented x3 Neuro motor strength exam: Left Upper Extremity: 5, Right Upper Extremity: 5, Left Lower Extremity: 5, Right Lower Extremity: 5 - Psychiatric Exam Psychiatric exam: Normal Affect, Normal Mood - Skin Skin Exam: Dry, Intact, Normal Color Assessment and Plan - Assessment and Plan (Free Text) Assessment: 62 year old female with past medical history of diverticulitis, diverticulosis, diabetes, hypertension, hyperlipidemia presents with left lower quadrant pain, malodor of urine, and constipation. Plan: Diverticulitis -CT Abdomen (11/18): atherosclerosis of aorta, bowel evaluation limited due to lack of distention, no mucosal thickening, pancreas evaluation limited -UA (11/18): small leukocyte esterase, few bacteria, no blood -Gallbladder Ultrasound (11/18): no cholelithiasis, no biliary dilatation. Diffuse echogenicity of liver may reflect hepatic steatosis however parenchymal infectious/inflammatory etiologies cannot be excluded. -Lipase: 766 on 11/18. Yesterday, lipase is 130. -Ceftriaxone and metronidazole for possible diverticulitis. -Patient will be discharged with ciprofloaxicin 500 mg PO BID and flagyl 500 mg PO TID. -Morphine 2mg IV Q4PRN for pain. -Toradol 30 mg PO Q6PRN for pain. -Patient educated regarding constipation. Patient reports having been educated in the past and has had the appropriate diet. -Per GI, this could be a combination of constipation and diverticulitis. Patient should receive outpatient colonoscopy at 6-8 weeks at the [facility]. Patient can be progressed to soft diet tomorrow if tolerating diet. Patient on bowel regimen of miralax 17 gm BID. -Patient should follow up with [facility] for evaluation of lower abdominal pain. Transamnitis 2/2 to hepatic steatosis vs. atorvastatin use -AST: 60 from 48 on 11/19 -ALT: 74 from 55 on 11/19. Resolved ALT elevation -ALP: 94 from 98 on 11/19. -Bilirubin: 0.6 from 0.5 on 11/19 -Continue to trend. Chronic Constipation -Patient has one bowel movement every day generally. Patient has not had bowel movement in 3 days. -Miralax 17 gm BID as per GI. -Patient progressed to full liquid diet from clear liquid. -Patient tolerating full liquid diet. Patient's diet will be advanced tomorrow to soft diet if patient continues to tolerate diet as per GI. History of Diabetes Mellitus Type 2 -Patient's last blood glucose level was 148. -Patient has been placed on a regular insulin regimen Q6 History of Hypertension -Blood pressure on 11/20: 155/85 -Patient is currently not on any medications. History of Hyperlipidemia -CT of abdomen showed atherosclerosis of the aorta -Patient currently not on any medication. Disposition -PMD: [facility] -Patient has applied for [facility]. -Social work consulted for assistance with payment for medical services. -Patient for discharge tomorrow as per GI. -[facility] clinic appointment: 11/30/17 at 3:30pm. Patient seen and evaluated with Dr. Garvey. <Luciano Garvey - Last Filed: 11/21/17 11:43> Objective - Vital Signs/Intake and Output Vital Signs (last 24 hours): Temp Pulse Resp BP Pulse Ox 97.8 F 66 18 129/71 94 L 11/21/17 07:41 11/21/17 07:41 11/21/17 07:41 11/21/17 07:41 11/21/17 07:41 Intake and Output: 11/21/17 11/21/17 06:59 18:59 Intake Total 900 Balance 900 - Medications Medications: Current Medications Enoxaparin Sodium (Lovenox) 40 mg SC DAILY [facility] PRN Reason: Protocol Last Admin: 11/21/17 09:43 Dose: 40 mg Metronidazole (Flagyl) 500 mg in 100 mls @ 100 mls/hr IVPB Q8 [facility] PRN Reason: Protocol Last Admin: 11/21/17 07:28 Dose: 100 mls/hr Ceftriaxone Sodium (Rocephin 1 Gram Ivpb) 1 gm in 100 mls @ 100 mls/hr IVPB DAILY [facility] PRN Reason: Protocol Last Admin: 11/21/17 09:44 Dose: 100 mls/hr Sodium Chloride (Sodium Chloride 0.9%) 1,000 mls @ 60 mls/hr IV .[id number] [facility] Last Admin: 11/21/17 07:29 Dose: 60 mls/hr Insulin Human Regular (Humulin R Med) 0 units SC Q6 [facility] PRN Reason: Protocol Last Admin: 11/21/17 07:55 Dose: 1 units Ketorolac Tromethamine (Toradol) 30 mg IVP Q6H PRN PRN Reason: Pain, moderate (4-7) Last Admin: 11/20/17 22:08 Dose: 30 mg Morphine Sulfate (Morphine) 2 mg IVP Q4H PRN PRN Reason: Pain, severe (8-10) Pantoprazole Sodium (Protonix Ec Tab) 40 mg PO 0600 [facility] Last Admin: 11/21/17 07:28 Dose: 40 mg Polyethylene Glycol (Miralax) 17 gm PO BID [facility] Last Admin: 11/21/17 09:43 Dose: 17 gm - Labs Labs: 11/21/17 05:00 11/21/17 05:00 Attending/Attestation - Attestation I have personally seen and examined this patient.: Yes I have fully participated in the care of the patient.: Yes I have reviewed all pertinent clinical information, including history, physical exam and plan: Yes Notes (Text): 11/21/17 11:40 attending note; Patient seen and examined with resident. Abdominal pain is improving. Denies any fevers, chills. Had bowel movement today. Patient is a 62-year-old female with a past medical history of diverticulitis, constipation is admitted with left lower quadrant pain. CT scan is consistent with diverticulosis/ constipation. possible mild diverticulitis suspected. Continue IV fluids. IV pain medication as needed. Started on IV Rocephin and Flagyl. GI evaluation appreciated. Needs outpatient colonoscopy in 6 to 8 weeks. blood, urine culture is negative. Case discussed with daughter by the bedside in detail. Start clear liquid diet. Advance as tolerated. Possible discharge home tomorrow. Upon discharge patient will follow-up with [facility] clinic. Patient will follow up with GI clinic for outpatient colonoscopy. 11/21/17 11:43
[2017-11-20] MEDS: Enoxaparin 40 mg Syringe SC SCH (09:41)
[2017-11-20] MEDS: POLYETHYLENE GLYCOL 3350 17 GM/Dose PACKET PO SCH ×2 (09:41→17:58)
[2017-11-20] MEDS: cefTRIAXone 1 gm 1 GM/100 ML BAG IVPB SCH (09:42)
[2017-11-20] MEDS: Sodium Chloride 0.9% 1,000 ML IV SCH (09:43)
[2017-11-20] MEDS ORDERED: Bisacodyl 5mg EC Tab PO ONE (13:42)
[2017-11-20 14:07] VITALS: RESP 18
--- NOTE | 2017-11-20 14:11 | CP.PCM.PN ---
Subjective - Date & Time of Evaluation Date of Evaluation: 11/20/17 Time of Evaluation: 09:00 - Subjective Subjective: GI Fellow PGY5 Progress Note Pt seen and evaluated at bedside, pt with decreased abdominal pain but still present. No BM on miralax bid,. Tolerating full liquid diet with no N/V, F/C. ROS: A 12pt ROS was negative except as above. Objective - Vital Signs/Intake and Output Vital Signs (last 24 hours): Temp Pulse Resp BP Pulse Ox 98.1 F 69 18 155/85 H 96 11/20/17 14:00 11/20/17 14:00 11/20/17 14:00 11/20/17 14:00 11/20/17 14:00 Intake and Output: 11/20/17 11/20/17 06:59 18:59 Intake Total 0 Balance 0 - Medications Medications: Current Medications Enoxaparin Sodium (Lovenox) 40 mg SC DAILY [facility] PRN Reason: Protocol Last Admin: 11/20/17 09:41 Dose: 40 mg Metronidazole (Flagyl) 500 mg in 100 mls @ 100 mls/hr IVPB Q8 [facility] PRN Reason: Protocol Last Admin: 11/20/17 06:29 Dose: 100 mls/hr Ceftriaxone Sodium (Rocephin 1 Gram Ivpb) 1 gm in 100 mls @ 100 mls/hr IVPB DAILY [facility] PRN Reason: Protocol Last Admin: 11/20/17 09:42 Dose: 100 mls/hr Sodium Chloride (Sodium Chloride 0.9%) 1,000 mls @ 60 mls/hr IV .[id number] [facility] Last Admin: 11/20/17 09:43 Dose: 60 mls/hr Insulin Human Regular (Humulin R Med) 0 units SC Q6 [facility] PRN Reason: Protocol Last Admin: 11/20/17 12:02 Dose: Not Given Ketorolac Tromethamine (Toradol) 30 mg IVP Q6H PRN PRN Reason: Pain, moderate (4-7) Morphine Sulfate (Morphine) 2 mg IVP Q4H PRN PRN Reason: Pain, severe (8-10) Pantoprazole Sodium (Protonix Ec Tab) 40 mg PO 0600 [facility] Last Admin: 11/20/17 06:31 Dose: 40 mg Polyethylene Glycol (Miralax) 17 gm PO BID [facility] Last Admin: 11/20/17 09:41 Dose: 17 gm - Labs Labs: 11/20/17 06:20 11/20/17 06:20 - Constitutional Appears: Non-toxic, No Acute Distress - Head Exam Head Exam: ATRAUMATIC, NORMAL INSPECTION, NORMOCEPHALIC - Eye Exam Eye Exam: EOMI, Normal appearance, PERRL Pupil Exam: PERRL - ENT Exam ENT Exam: Mucous Membranes Moist - Neck Exam Neck Exam: Full ROM, Normal Inspection - Respiratory Exam Respiratory Exam: Clear to Ausculation Bilateral, NORMAL BREATHING PATTERN - Cardiovascular Exam Cardiovascular Exam: REGULAR RHYTHM, RRR, +S1, +S2 - GI/Abdominal Exam GI & Abdominal Exam: Soft, Tenderness, Normal Bowel Sounds. absent: Distended, Guarding, Organomegaly - Rectal Exam Rectal Exam: Deferred - Extremities Exam Extremities Exam: Full ROM, Normal Inspection - Back Exam Back Exam: NORMAL INSPECTION - Neurological Exam Neurological Exam: Alert, Awake, Oriented x3 - Psychiatric Exam Psychiatric exam: Normal Affect, Normal Mood - Skin Skin Exam: Dry, Intact, Normal Color, Warm Assessment and Plan - Assessment and Plan (Free Text) Assessment: This is a 62yF presenting with complaints of left sided abdominal pain for three days. 1. Abdominal pain- constipation vs diverticulitis 2. Constipation 3. Diverticulosis 4. Fatty Liver Plan: -Continue supportive care with pain control and anti-emetics -CT imaging is w/o contrast so difficult to evaluate pancreas and colon, +stool and sigmoid diverticulosis -Abd US negative for gallstones, +hepatic steatosis -LFTs trending down -Pt clinically stable, afebrile with no leukocytosis -Abdominal pain clinically improving likely from constipation and possible diverticulitis -Continue bowel regimen with mirlaalx bid -Order one time dose of dulcolax -Okay to continue abx -Full liquid diet today, can advance to soft diet tomorrow if pain improved -Pt will need outpt colonoscopy in 6-8 weeks -Elevated lipase is nonspecific and has trended down, no dx of pancreatitis -Pt will need to followup at GI clinic -Will continue to follow pt closely
[2017-11-21] MEDS: Insulin Reg-MEDIUM-Coverage SC SCH ×3 (04:32→12:20)
[2017-11-21 06:03] LABS: BASO # 0.03 K/mm3 (0.0-2.0); BASO % 0.5 % (0.0-3.0); EOS # 0.2 (0.0-0.7); EOS % 3.2 % (1.5-5.0); GRAN # 2.73 (1.4-6.5); HEMOGLOBIN 13.7 g/dL (12.0-16.0); LYMPH # 2.2 (1.2-3.4); LYMPH % 37.8 % (22.0-35.0); MEAN CELL VOLUME 81.7 fl (80.0-105.0); MONO # 0.6 (0.1-0.6); MONO % 10.5 % (1.0-6.0); RBC 5.08 10^6/uL (3.5-6.1); RED CELL DISTRIBUTION WIDTH 14.1 % (11.5-14.5); WHITE BLOOD COUNT 5.7 10^3/ul (4.5-11.0)
[2017-11-21 06:24] LABS: ALB/GLOB RATIO 1.1 (1.1-1.8); ALBUMIN 4.1 g/dL (3.0-4.8); ALT/SGPT 72 U/L (7-56); AST/SGOT 55 U/L (14-36); BLOOD UREA NITROGEN 14 mg/dL (7-21); CALCIUM 8.9 mg/dL (8.4-10.5); GFR AFRICAN-AMERICAN > 60; GFR NON-AFRICAN AMERICAN > 60
[2017-11-21] MEDS: Pantoprazole 40 mg EC Tab PO SCH (07:28)
[2017-11-21] MEDS: metroNIDAZOLE IV 500 mg/100 ml 500 MG/100 ML BAG IVPB SCH ×2 (07:28→14:50)
[2017-11-21] MEDS: Sodium Chloride 0.9% 1,000 ML IV SCH (07:29)
[2017-11-21] MEDS: POLYETHYLENE GLYCOL 3350 17 GM/Dose PACKET PO SCH (09:43)
[2017-11-21] MEDS: Enoxaparin 40 mg Syringe SC SCH (09:43)
[2017-11-21] MEDS: cefTRIAXone 1 gm 1 GM/100 ML BAG IVPB SCH (09:44)
--- NOTE | 2017-11-21 11:38 | CP.PCM.DIS ---
<Adama Ryder - Last Filed: 11/21/17 11:48> Provider - Provider Date of Admission: 11/19/17 13:13 Attending physician: Luciano Garvey MD Primary care physician: NO PRIMARY CARE PROVIDER Consults: Gastroenterology: Dr. Doss for Dr. Parker Time Spent in preparation of Discharge (in minutes): 100 Diagnosis - Discharge Diagnosis (1) Diverticulitis Status: Acute Hospital Course - Lab Results Lab Results: Most Recent Lab Values WBC 5.7 10^3/ul (4.5-11.0) D 11/21/17 05:00 RBC 5.08 10^6/uL (3.5-6.1) 11/21/17 05:00 Hgb 13.7 g/dL (12.0-16.0) 11/21/17 05:00 Hct 41.5 % (36.0-48.0) 11/21/17 05:00 MCV 81.7 fl (80.0-105.0) 11/21/17 05:00 MCH 27.0 pg (25.0-35.0) 11/21/17 05:00 MCHC 33.0 g/dl (31.0-37.0) 11/21/17 05:00 RDW 14.1 % (11.5-14.5) 11/21/17 05:00 Plt Count 220 10^3/uL (120.0-450.0) 11/21/17 05:00 MPV 9.0 fl (7.0-11.0) 11/21/17 05:00 Gran % 48.0 % (50.0-68.0) L 11/21/17 05:00 Lymph % (Auto) 37.8 % (22.0-35.0) H 11/21/17 05:00 Drew % (Auto) 10.5 % (1.0-6.0) H 11/21/17 05:00 Eos % (Auto) 3.2 % (1.5-5.0) 11/21/17 05:00 Baso % (Auto) 0.5 % (0.0-3.0) 11/21/17 05:00 Gran # 2.73 (1.4-6.5) 11/21/17 05:00 Lymph # (Auto) 2.2 (1.2-3.4) 11/21/17 05:00 Drew # (Auto) 0.6 (0.1-0.6) 11/21/17 05:00 Eos # (Auto) 0.2 (0.0-0.7) 11/21/17 05:00 Baso # (Auto) 0.03 K/mm3 (0.0-2.0) 11/21/17 05:00 Sodium 141 mmol/L (132-148) 11/21/17 05:00 Potassium 3.9 mmol/L (3.6-5.0) 11/21/17 05:00 Chloride 105 mmol/L (98-107) 11/21/17 05:00 Carbon Dioxide 26 mmol/L (21-33) 11/21/17 05:00 Anion Gap 14 (10-20) 11/21/17 05:00 BUN 14 mg/dL (7-21) 11/21/17 05:00 Creatinine 0.5 mg/dl (0.7-1.2) L 11/21/17 05:00 Est GFR ( Amer) > 60 11/21/17 05:00 Est GFR (Non-Af Amer) > 60 11/21/17 05:00 POC Glucose (mg/dL) 148 mg/dL (65-110) H 11/20/17 11:23 Random Glucose 152 mg/dL (70-110) H 11/21/17 05:00 Calcium 8.9 mg/dL (8.4-10.5) 11/21/17 05:00 Phosphorus 3.8 mg/dL (2.5-4.5) 11/21/17 05:00 Magnesium 2.1 mg/dL (1.7-2.2) 11/21/17 05:00 Total Bilirubin 0.6 mg/dL (0.2-1.3) 11/21/17 05:00 AST 55 U/L (14-36) H 11/21/17 05:00 ALT 72 U/L (7-56) H 11/21/17 05:00 Alkaline Phosphatase 95 U/L (38-126) 11/21/17 05:00 Total Protein 7.7 g/dL (5.8-8.3) 11/21/17 05:00 Albumin 4.1 g/dL (3.0-4.8) 11/21/17 05:00 Globulin 3.7 gm/dL 11/21/17 05:00 Albumin/Globulin Ratio 1.1 (1.1-1.8) 11/21/17 05:00 Triglycerides 151 mg/dL (35-160) 11/19/17 06:10 Cholesterol 149 mg/dL (130-200) 11/19/17 06:10 LDL Cholesterol Direct 75 mg/dL (0-129) 11/19/17 06:10 HDL Cholesterol 36 mg/dL (29-60) 11/19/17 06:10 Amylase 96 U/L (35-125) 11/19/17 06:10 Lipase 129 U/L (23-300) 11/19/17 06:10 Urine Color Yellow (YELLOW) 11/18/17 20:00 Urine Appearance Clear (CLEAR) 11/18/17 20:00 Urine pH 6.0 (4.7-8.0) 11/18/17 20:00 Ur Specific [place] 1.025 (1.005-1.035) 11/18/17 20:00 Urine Protein Negative mg/dL (<30 mg/dL) 11/18/17 20:00 Urine Glucose (UA) Negative mg/dL (NEGATIVE) 11/18/17 20:00 Urine Ketones Negative mg/dL (NEGATIVE) 11/18/17 20:00 Urine Blood Negative (NEGATIVE) 11/18/17 20:00 Urine Nitrate Negative (NEGATIVE) 11/18/17 20:00 Urine Bilirubin Negative (NEGATIVE) 11/18/17 20:00 Urine Urobilinogen 0.2 E.U./dL (<1 E.U./dL) 11/18/17 20:00 Ur Leukocyte Esterase Small Brandie/uL (NEGATIVE) H 11/18/17 20:00 Urine RBC Negative /hpf (0-2) 11/18/17 20:00 Urine WBC 2 - 5 /hpf (0-6) 11/18/17 20:00 Ur Epithelial Cells 3 - 4 /hpf (0-5) 11/18/17 20:00 Urine Bacteria Few (NEG) 11/18/17 20:00 - Hospital Course Hospital Course: Adama Ryder, PGY-1, Internal Medicine Discharge Summary For Dr. Garvey. 62 year old female with past medical history of diverticulosis, diverticulitis, diabetes mellitus type 2, hypertension, and hyperlipidemia presented to the emergency department with severe, constant, nonradiating left lower quadrant pain on 11/19. Patient reports that she had the pain for 3 days and was aggravated with palpation. CT abdomen on 11/18 showed atherosclerosis of the aorta , bowel evaluation limited due to lack of distention, no mucosal thickening, and pancreas evaluation limited. UA on 11/18 showed small leukocyte esterase, few bacteria, and no blood. Gall bladder ultrasound on 11/18 showed no cholelithiasis and no biliary dilatation. Diffuse echogenicity was present that reflected hepatic steatosis however parenchymal infectious/inflammatory etiologies that could not be excluded. Blood and urine cultures showed no growth. Lipase was 766 on 11/18, which trended down to 130 on 11/19. Ceftriaxone and metronidazole was started for possible diverticulitis. Morphine 2 mg IV Q4PRN and toradol 30 mg PO Q6PRN was given for pain. Patient has had mild transaminitis throughout admission. Patient had no had bowel movement for 4 days. Patient finally had bowel movement today after regimen of miralax 17 gm BID. Patient's diet was progressed from clear liquid to full liquid on 11/19. Last night, diet was progressed to a cardiac diet. Patient tolerated diet and complained of only mild left lower quadrant pain today. Patient has a history of diabetes and was given a regimen of regular insulin Q6 throughout hospital stay. Patient was educated regarding medication compliance. Patient will be discharged with ciprofloaxicin 500 mg BID and metronidazole 500 mg TID for 7 days for a total of 10 days of antibiotics for suspected diverticulitis. Patient was discharged with miralax for chronic constipation. Patient was instructed to follow up with PMD, [facility] clinic on November 30 at 3:30 pm. Patient was instructed to follow up for GI at [facility] for abdominal pain complaint. Patient was told to follow up for outpatient colonoscopy in 6-8 weeks. Patient was told to return to the emergency department if patient had any recurring or worsening symptoms. This is a brief summary of events that transpired at the hospital. For more information, please refer to medical records. - Date & Time of H&P Date of H&P: 11/18/17 Time of H&P: 23:24 Discharge Exam - Head Exam Head Exam: ATRAUMATIC, NORMOCEPHALIC - Eye Exam Eye Exam: EOMI, PERRL - Respiratory Exam Respiratory Exam: Clear to PA & Lateral, UNREMARKABLE - Cardiovascular Exam Cardiovascular Exam: REGULAR RHYTHM, RRR - GI/Abdominal Exam GI & Abdominal Exam: Normal Bowel Sounds, Soft, Tenderness (LLQ) - Extremities Exam Extremities exam: full ROM - Neurological Exam Neurological exam: Alert, CN II-XII Intact, Oriented x3 - Psychiatric Exam Psychiatric exam: Normal Affect, Normal Mood - Skin Skin Exam: Dry, Intact, Normal Color Discharge Plan - Discharge Medications Prescriptions: Ciprofloxacin HCl [Cipro] 500 mg PO BID #14 tablet Metronidazole [Flagyl] 500 mg PO Q8 #21 tablet Polyethylene Glycol 3350 [Miralax] 17 gm PO BID #30 powd.pack - Follow Up Plan Condition: GUARDED Disposition: HOME/ ROUTINE Instructions: Gastritis, Heart Healthy Diet, Constipation, Adult (DC), Diverticulitis, Diabetic Meal Planning Additional Instructions: 1.Follow up with [facility] in [place], [place] for outpatient colonoscopy in 6-8 weeks. 2.Follow [facility] [place] [place] clinic November 30, at 3:30 3.Continue flagyl and ciprofloxacin for the next 7 days 4.Miralax for constipation 5.If symptoms worsen please return to the nearest emergency department Referrals: [facility] at [facility] [place] [place] [Outside] PCP,NO [Primary Care Provider] - Follow up with primary <Luciano Garvey - Last Filed: 11/22/17 11:58> Provider - Provider Date of Admission: 11/19/17 13:13 Attending physician: Luciano Garvey MD Primary care physician: NO PRIMARY CARE PROVIDER Hospital Course - Lab Results Lab Results: Most Recent Lab Values WBC 5.7 10^3/ul (4.5-11.0) D 11/21/17 05:00 RBC 5.08 10^6/uL (3.5-6.1) 11/21/17 05:00 Hgb 13.7 g/dL (12.0-16.0) 11/21/17 05:00 Hct 41.5 % (36.0-48.0) 11/21/17 05:00 MCV 81.7 fl (80.0-105.0) 11/21/17 05:00 MCH 27.0 pg (25.0-35.0) 11/21/17 05:00 MCHC 33.0 g/dl (31.0-37.0) 11/21/17 05:00 RDW 14.1 % (11.5-14.5) 11/21/17 05:00 Plt Count 220 10^3/uL (120.0-450.0) 11/21/17 05:00 MPV 9.0 fl (7.0-11.0) 11/21/17 05:00 Gran % 48.0 % (50.0-68.0) L 11/21/17 05:00 Lymph % (Auto) 37.8 % (22.0-35.0) H 11/21/17 05:00 Drew % (Auto) 10.5 % (1.0-6.0) H 11/21/17 05:00 Eos % (Auto) 3.2 % (1.5-5.0) 11/21/17 05:00 Baso % (Auto) 0.5 % (0.0-3.0) 11/21/17 05:00 Gran # 2.73 (1.4-6.5) 11/21/17 05:00 Lymph # (Auto) 2.2 (1.2-3.4) 11/21/17 05:00 Drew # (Auto) 0.6 (0.1-0.6) 11/21/17 05:00 Eos # (Auto) 0.2 (0.0-0.7) 11/21/17 05:00 Baso # (Auto) 0.03 K/mm3 (0.0-2.0) 11/21/17 05:00 Sodium 141 mmol/L (132-148) 11/21/17 05:00 Potassium 3.9 mmol/L (3.6-5.0) 11/21/17 05:00 Chloride 105 mmol/L (98-107) 11/21/17 05:00 Carbon Dioxide 26 mmol/L (21-33) 11/21/17 05:00 Anion Gap 14 (10-20) 11/21/17 05:00 BUN 14 mg/dL (7-21) 11/21/17 05:00 Creatinine 0.5 mg/dl (0.7-1.2) L 11/21/17 05:00 Est GFR ( Amer) > 60 11/21/17 05:00 Est GFR (Non-Af Amer) > 60 11/21/17 05:00 POC Glucose (mg/dL) 148 mg/dL (65-110) H 11/20/17 11:23 Random Glucose 152 mg/dL (70-110) H 11/21/17 05:00 Calcium 8.9 mg/dL (8.4-10.5) 11/21/17 05:00 Phosphorus 3.8 mg/dL (2.5-4.5) 11/21/17 05:00 Magnesium 2.1 mg/dL (1.7-2.2) 11/21/17 05:00 Total Bilirubin 0.6 mg/dL (0.2-1.3) 11/21/17 05:00 AST 55 U/L (14-36) H 11/21/17 05:00 ALT 72 U/L (7-56) H 11/21/17 05:00 Alkaline Phosphatase 95 U/L (38-126) 11/21/17 05:00 Total Protein 7.7 g/dL (5.8-8.3) 11/21/17 05:00 Albumin 4.1 g/dL (3.0-4.8) 11/21/17 05:00 Globulin 3.7 gm/dL 11/21/17 05:00 Albumin/Globulin Ratio 1.1 (1.1-1.8) 11/21/17 05:00 Triglycerides 151 mg/dL (35-160) 11/19/17 06:10 Cholesterol 149 mg/dL (130-200) 11/19/17 06:10 LDL Cholesterol Direct 75 mg/dL (0-129) 11/19/17 06:10 HDL Cholesterol 36 mg/dL (29-60) 11/19/17 06:10 Amylase 96 U/L (35-125) 11/19/17 06:10 Lipase 129 U/L (23-300) 11/19/17 06:10 Urine Color Yellow (YELLOW) 11/18/17 20:00 Urine Appearance Clear (CLEAR) 11/18/17 20:00 Urine pH 6.0 (4.7-8.0) 11/18/17 20:00 Ur Specific [place] 1.025 (1.005-1.035) 11/18/17 20:00 Urine Protein Negative mg/dL (<30 mg/dL) 11/18/17 20:00 Urine Glucose (UA) Negative mg/dL (NEGATIVE) 11/18/17 20:00 Urine Ketones Negative mg/dL (NEGATIVE) 11/18/17 20:00 Urine Blood Negative (NEGATIVE) 11/18/17 20:00 Urine Nitrate Negative (NEGATIVE) 11/18/17 20:00 Urine Bilirubin Negative (NEGATIVE) 11/18/17 20:00 Urine Urobilinogen 0.2 E.U./dL (<1 E.U./dL) 11/18/17 20:00 Ur Leukocyte Esterase Small Brandie/uL (NEGATIVE) H 11/18/17 20:00 Urine RBC Negative /hpf (0-2) 11/18/17 20:00 Urine WBC 2 - 5 /hpf (0-6) 11/18/17 20:00 Ur Epithelial Cells 3 - 4 /hpf (0-5) 11/18/17 20:00 Urine Bacteria Few (NEG) 11/18/17 20:00 Attending/Attestation - Attestation I have personally seen and examined this patient.: Yes I have fully participated in the care of the patient.: Yes I have reviewed all pertinent clinical information, including history, physical exam and plan: Yes Notes (Text): 11/22/17 11:55 attending note; Patient seen and examined with resident. Abdominal pain has improved. tolerated regular diet this morning. Denies any nausea, vomiting. Had bowel movement yesterday. Patient is a 62-year-old female with a past medical history of diverticulitis, constipation is admitted with left lower quadrant pain. CT scan is consistent with diverticulosis/ constipation. possible mild diverticulitis suspected. Treated with IV fluids ,pain medication. Treated with IV Rocephin and Flagyl. GI evaluation appreciated. Needs outpatient colonoscopy in 6 to 8 weeks. blood, urine culture is negative. Discharge home today. Upon discharge patient will follow-up with [facility] [place] [place] clinic. Patient is advised to follow-up with [facility] GI clinic for outpatient colonoscopy.
[2017-11-21 14:11] VITALS: BP 158/74; PULSE 61; TEMP 98.5; O2SAT 96
[2017-11-23 08:47] LABS: HEPATITIS B SURFACE AG Negative (NEGATIVE)
[2017-11-23 08:54] LABS: HEPATITIS A IGM NEGATIVE (NEGATIVE); HEPATITIS B CORE AB NEGATIVE (NEGATIVE)
[2017-11-23 09:05] LABS: HEPATITIS C ANTIBODY NEGATIVE (NEGATIVE)
== END 2017-11-21 15:14 | disposition home or self-care (01) | DRG 392 ==
LOC: ED 19:28 → ERH 22:02 → 5RNO 23:00 → OBSVTOIN 11-19 13:13
PROVIDERS: ADMIT Internal Medicine; ATTEND Internal Medicine
DX: K57.92 Diverticulitis of intestine, part unspecified, without perforation or abscess without bleeding (principal); E11.9 Type 2 diabetes mellitus without complications; I10 Essential (primary) hypertension; I70.0 Atherosclerosis of aorta; K76.0 Fatty (change of) liver, not elsewhere classified; E78.00 Pure hypercholesterolemia, unspecified; E78.5 Hyperlipidemia, unspecified; K59.09 Other constipation; E66.3 Overweight; Z79.84 Long term (current) use of oral hypoglycemic drugs; Z87.440 Personal history of urinary (tract) infections; Z68.29 Body mass index [BMI] 29.0-29.9, adult

== ENCOUNTER 2018-06-08 22:10 | Inpatient (IN) | payer MEDICAID, OTHER ==
[2018-06-08 22:10] VITALS: BMI 29.7
[2018-06-08 23:22] LABS: PH,URINE 7.5 (4.7-8.0); URINE BILIRUBIN NEGATIVE (NEGATIVE); URINE BLOOD NEGATIVE (NEGATIVE); URINE GLUCOSE (UA) 500 mg/dL (NEGATIVE); URINE LEUKOCYTE ESTERASE TRACE Leu/uL (NEGATIVE); URINE PROTEIN NEGATIVE mg/dL (<30 mg/dL); URINE UROBILINOGEN 0.2 E.U./dL (<1 E.U./dL)
--- NOTE | 2018-06-08 23:28 | ED PDOC ---
Arrival/HPI - General Chief Complaint: Female Genitourinary Time Seen by Provider: 06/08/18 22:36 Historian: Patient - History of Present Illness Narrative History of Present Illness (Text): 06/08/18 23:01 Earlene Crow is a 63 year old female, whose past medical history includes diverticulitis, hypertension, hyperlipidemia, and diabetes, who presents to the Emergency department accompanied by relative complaining of abdominal pain. 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 Patient reports some burning on urination. Patient denies any history of kidney stones, fever, chills, chest pain, shortness of breath, nausea, vomiting, diarrhea, neck pain, headache, dizziness, or any other complaints. Symptom Onset: Gradual Symptom Course: Unchanged Activities at Onset: Light Context: Home Past Medical History - Provider Review Nursing Documentation Reviewed: Yes - Infectious Disease Hx of Infectious Diseases: None - Reproductive Menopause: Yes - Cardiac Hx Cardiac Disorders: Yes Hx Hypertension: Yes - Pulmonary Hx Respiratory Disorders: No - Neurological Hx Neurological Disorder: No - HEENT Hx HEENT Disorder: No - Renal Hx Renal Disorder: No - Endocrine/Metabolic Hx Endocrine Disorders: Yes Hx Diabetes Mellitus Type 1: Yes - Hematological/Oncological Hx Blood Disorders: No - Integumentary Hx Dermatological Disorder: No - Musculoskeletal/Rheumatological Hx Musculoskeletal Disorders: No Hx Falls: No - Gastrointestinal Hx Gastrointestinal Disorders: Yes Hx Diverticulitis: Yes Other/Comment: gastritis - Genitourinary/Gynecological Hx Genitourinary Disorders: No Hx Urinary Tract Infection: Yes - Psychiatric Hx Psychophysiologic Disorder: No Hx Substance Use: No - Anesthesia Hx Anesthesia: No Family/Social History - Physician Review Nursing Documentation Reviewed: Yes Family/Social History: Unknown Family HX Smoking Status: Never Smoked Hx Alcohol Use: No Hx Substance Use: No Allergies/Home Meds Allergies/Adverse Reactions: Allergies No Known Allergies Allergy (Verified 11/18/17 19:42) Home Medications: Home Meds Medication Instructions Recorded Confirmed Atorvastatin [Lipitor] 1 tab PO DAILY 11/18/17 06/08/18 Sitagliptin Phos/Metformin HCl 1 tab PO BID 11/18/17 06/08/18 [Janumet 50-1,000 mg Tablet] Aspirin [Ecotrin] 81 mg PO DAILY 06/09/18 06/09/18 Losartan [Cozaar] 50 mg PO DAILY 06/09/18 06/09/18 Review of Systems - Physician Review All systems were reviewed & negative as marked: Yes - Review of Systems Constitutional: Normal. absent: Fevers Eyes: Normal ENT: Normal Respiratory: Normal. absent: SOB, Cough Cardiovascular: Normal. absent: Chest Pain Gastrointestinal: Abdominal Pain. absent: Diarrhea, Nausea, Vomiting Genitourinary Female: Dysuria, Frequency. absent: Hematuria, Urine Output Changes Musculoskeletal: Normal. absent: Back Pain, Neck Pain Skin: Normal. absent: Rash Neurological: Normal. absent: Headache, Dizziness Endocrine: Normal Hemo/Lymphatic: Normal Psychiatric: Normal Physical Exam Vital Signs Reviewed: Yes Vital Signs Temp Pulse Resp BP Pulse Ox 06/08/18 22:25 98.4 F 92 H 18 147/83 97 Temperature: Afebrile Blood Pressure: Normal Pulse: Regular Respiratory Rate: Normal Appearance: Positive for: Well-Appearing, Non-Toxic, Comfortable Pain Distress: None Mental Status: Positive for: Alert and Oriented X 3 - Systems Exam Head: Present: Atraumatic, Normocephalic Pupils: Present: PERRL Extroacular Muscles: Present: EOMI Conjunctiva: Present: Normal Mouth: Present: Moist Mucous Membranes Neck: Present: Normal Range of Motion Respiratory/Chest: Present: Clear to Auscultation, Good Air Exchange. No: Respiratory Distress, Accessory Muscle Use Cardiovascular: Present: Regular Rate and Rhythm, Normal S1, S2. No: Murmurs Abdomen: Present: Tenderness (Mid-abdominal tenderness). No: Distention, Peritoneal Signs Back: Present: Normal Inspection Upper Extremity: Present: Normal Inspection. No: Cyanosis, Edema Lower Extremity: Present: Normal Inspection. No: Edema Neurological: Present: GCS=15, CN II-XII Intact, Speech Normal Skin: Present: Warm, Dry, Normal Color. No: Rashes Psychiatric: Present: Alert, Oriented x 3, Normal Insight, Normal Concentration Medical Decision Making ED Course and Treatment: 06/08/18 23:00 Impression: 63 year old female complaining of flank pain, lower abdominal pain, and dysuria. Plan: -- CT Abdomen and Pelvis -- Urinalysis -- Reassess and disposition Prior Visits: Notes and results from previous visits were reviewed. Progress Notes: 06/09/18 00:39 CT Abdomen and Pelvis: LUNG BASES: There is some mosaic attenuation in the visualized lung bases. This is nonspecific but can be seen in vascular and small airways disease. Please correlate clinically. The visualized heart appears mildly to moderately enlarged, Although unchanged from November 2017. LIVER: Unremarkable. GALLBLADDER AND BILE DUCTS: The gallbladder appears within normal limits. No radioopaque gallstones are seen. No biliary ductal dilatation is evident. PANCREAS: Unremarkable. SPLEEN: Unremarkable. ADRENAL GLANDS: Unremarkable. KIDNEYS, URETERS, AND BLADDER: Small right upper pole renal cyst, unchanged. STOMACH AND BOWEL: There is inflammatory stranding adjacent to the sigmoid colon where there is extensive underlying diverticular disease. This is compatible with acute diverticulitis. No convincing evidence for perforation or organized abscess. More proximally, the colon demonstrates constipation. No bowel obstruction. APPENDIX: No evidence of acute appendicitis on CT examination. PERITONEUM: No free fluid. No free air. LYMPH NODES: No lymphadenopathy is evident. REPRODUCTIVE: Unremarkable as visualized. VASCULATURE: The abdominal aorta is tortuous and atherosclerotic without aneurysm. BONES: There is moderate multilevel degenerative spine changes. MISCELLANEOUS: There is no evidence for obstructive uropathy. IMPRESSION: 1. There is no evidence for obstructive uropathy. 2. There is inflammatory stranding adjacent to the sigmoid colon where there is extensive underlying diverticular disease. This is compatible with acute diverticulitis. No convincing evidence for perforation or organized abscess. 3. More proximally, the colon demonstrates constipation. 4. Additional and incidental findings as described, please see comments. Electronically signed on Jun 09, 2018 12:35:46 AM EST by: Malik Be M.D., Certified by ABR, MSK, Neuroradiology 06/09/18 01:11 Case discussed with medical surgery nurse explosives detonator, who is aware and agrees with plan. - RAD Interpretation Radiology Orders: 06/08/18 23:01 ABD & PELVIS W/O PO OR IV CONT [CT] Stat - Scribe Statement The provider has reviewed the documentation as recorded by the Umesh Hanson Provider Scribe Attestation: All medical record entries made by the Scribe were at my direction and personally dictated by me. I have reviewed the chart and agree that the record accurately reflects my personal performance of the history, physical exam, [facility] decision making, and the department course for this patient. I have also personally directed, reviewed, and agree with the discharge instructions and disposition. Disposition/Present on Arrival - Present on Arrival Any Indicators Present on Arrival: No History of DVT/PE: No History of Uncontrolled Diabetes: No Urinary Catheter: No History of Decub. Ulcer: No History Surgical Site Infection Following: None - Disposition Have Diagnosis and Disposition been Completed?: Yes Diagnosis: Diverticulitis Disposition: HOSPITALIZED Disposition Time: 01:15 Condition: FAIR
[2018-06-08 23:31] LABS: URINE APPEARANCE CLEAR (CLEAR); URINE COLOR YELLOW (YELLOW)
[2018-06-08 23:40] LABS: URINE RBC 0 - 2 /hpf (0-2)
[2018-06-08 23:41] LABS: URINE BACTERIA OCC /hpf
[2018-06-09] MEDS ORDERED: metroNIDAZOLE IV 500 mg/100 ml 500 MG/100 ML BAG IVPB STA (01:03)
[2018-06-09] MEDS ORDERED: cefTRIAXone 1 gm 1 GM/100 ML BAG IVPB STA (01:03)
[2018-06-09 01:25] LABS: BASO # 0.02 K/mm3 (0.0-2.0); BASO % 0.2 % (0.0-3.0); EOS # 0.1 (0.0-0.7); EOS % 1.5 % (1.5-5.0); HEMOGLOBIN 12.5 g/dL (12.0-16.0); LYMPH # 2.1 (1.2-3.4); LYMPH % 23.2 % (22.0-35.0); MEAN CELL VOLUME 83.9 fl (80.0-105.0); MEAN CORPUSCULAR HEMOGLOBIN 26.8 pg (25.0-35.0); MEAN PLATELET VOLUME 8.7 fl (7.0-11.0); MONO % 10.7 % (1.0-6.0); RBC 4.66 10^6/uL (3.5-6.1); RED CELL DISTRIBUTION WIDTH 13.4 % (11.5-14.5); WHITE BLOOD COUNT 9.2 10^3/uL (4.5-11.0)
--- NOTE | 2018-06-09 01:33 | CP.PCM.HP ---
<David Mims - Last Filed: 06/09/18 02:28> History of Present Illness - History of Present Illness History of Present Illness: PGY1 Medicine Team History and Physical Exam Note for Dr. Fuentes CC: Abdominal pain 63-year-old Female with PMH of Diverticulosis, Diverticulitis, DM, HTN, HLD presents to ED with complaints of abdominal pain. Patient's daughter is at bedside and with the permission of the Patient, Patient's daughter is present during examination. Patient says she started having suprapubic tenderness in the setting of dysuria and bilateral flank pain. Patient states her pain is intermittent and localized suprapubically, sharp in quality and radiates towards bilateral lower quadrants and bilateral flank. Patient states she has a colon oscopy scheduled later this week. ROS is otherwise unremarkable for kidney stones, fever, chills, chest pain, shortness of breath, nausea, vomiting, diarrhea, neck pain, headache, and/or dizziness. PMH: Diverticulosis, Diverticulitis, HTN, DM, HLD PSH: Most recent colonoscopy was about 6 years ago. Patient states she has a colonoscopy scheduled on SH: Denies smoking, alcohol, drug use Allergies: NKDA Meds: Lopressor, Atorvastatin, Metformin Patient was discharged on the following from 11/18/17 admission: flagyl, ceftriaxone, miralax PMD: Denies Present on Admission - Present on Admission Any Indicators Present on Admission: No History of DVT/PE: No History of Uncontrolled Diabetes: No Urinary Catheter: No Decubitus Ulcer Present: No Review of Systems - Review of Systems All systems: reviewed and no additional remarkable complaints except (as mentioned in HPI) Past Patient History - Infectious Disease Hx of Infectious Diseases: None - Past Social History Smoking Status: Never Smoked - CARDIAC Hx Cardiac Disorders: Yes Hx Hypertension: Yes - PULMONARY Hx Respiratory Disorders: No - NEUROLOGICAL Hx Neurological Disorder: No - HEENT Hx HEENT Problems: No - RENAL Hx Chronic Kidney Disease: No - ENDOCRINE/METABOLIC Hx Endocrine Disorders: Yes Hx Diabetes Mellitus Type 1: Yes - HEMATOLOGICAL/ONCOLOGICAL Hx Blood Disorders: No - INTEGUMENTARY Hx Dermatological Problems: No - MUSCULOSKELETAL/RHEUMATOLOGICAL Hx Musculoskeletal Disorders: No Hx Falls: No - GASTROINTESTINAL Hx Gastrointestinal Disorders: Yes Hx Diverticulitis: Yes Other/Comment: gastritis - GENITOURINARY/GYNECOLOGICAL Hx Genitourinary Disorders: No Hx Urinary Tract Infection: Yes - PSYCHIATRIC Hx Psychophysiologic Disorder: No Hx Substance Use: No - SURGICAL HISTORY Hx Surgeries: No - ANESTHESIA Hx Anesthesia: No Meds Allergies/Adverse Reactions: Allergies Allergy/AdvReac Type Severity Reaction Status Date / Time No Known Allergies Allergy Verified 11/18/17 19:42 Physical Exam - Constitutional Appears: Non-toxic, No Acute Distress - Head Exam Head Exam: ATRAUMATIC, NORMAL INSPECTION, NORMOCEPHALIC - Eye Exam Eye Exam: EOMI, Normal appearance - ENT Exam ENT Exam: Mucous Membranes Moist, Normal Exam - Neck Exam Neck exam: Positive for: Normal Inspection - Respiratory Exam Respiratory Exam: Clear to Auscultation Bilateral, NORMAL BREATHING PATTERN. absent: Rhonchi, Wheezes, Respiratory Distress - Cardiovascular Exam Cardiovascular Exam: REGULAR RHYTHM, +S1, +S2 - GI/Abdominal Exam GI & Abdominal Exam: Normal Bowel Sounds, Soft, Tenderness (suprapubic tenderness, LLQ tenderness, CVA tenderness bilaterally). absent: Distended, Firm, Guarding - Extremities Exam Extremities exam: Positive for: normal inspection. Negative for: joint swelling, pedal edema, tenderness - Back Exam Back exam: CVA tenderness (L), CVA tenderness (R) - Neurological Exam Neurological exam: Alert, Normal Gait, Oriented x3 - Psychiatric Exam Psychiatric exam: Normal Affect, Normal Mood - Skin Skin Exam: Dry, Intact, Normal Color, Warm Results - Vital Signs Recent Vital Signs: Last Vital Signs Temp 98.4 F 06/08/18 22:25 Pulse 92 H 06/08/18 22:25 Resp 18 06/08/18 22:25 BP 147/83 06/08/18 22:25 Pulse Ox 97 06/08/18 22:25 - Labs Result Diagrams: 06/09/18 01:08 06/09/18 01:08 Labs: Laboratory Results - last 24 hr 06/08/18 23:04 Urine Color Yellow Urine Appearance Clear Urine pH 7.5 Ur Specific [place] 1.020 Urine Protein Negative Urine Glucose (UA) 500 H Urine Ketones Negative Urine Blood Negative Urine Nitrate Negative Urine Bilirubin Negative Urine Urobilinogen 0.2 Ur Leukocyte Esterase Trace H Urine RBC 0 - 2 Urine WBC 5 - 10 H Ur Epithelial Cells 4 - 5 Urine Bacteria Occ Assessment & Plan - Assessment and Plan (Free Text) Assessment: 63-year-old Female with PMH of Diverticulosis, Diverticulitis, DM, HTN, HLD presents to ED with complaints of abdominal pain likely secondary to diverticulitis and UTI Abdominal Pain likely 2/2 diverticulitis - CT Abdomen and Pelvis: * There is no evidence for obstructive uropathy. * There is inflammatory stranding adjacent to the sigmoid colon where there is extensive underlying diverticular disease. This is compatible with acute diverticulitis. No convincing evidence for perforation or organized abscess. * More proximally, the colon demonstrates constipation. - F/U Lipase - F/U Blood culture - F/U Stool culture - 1 dose of ceftriaxone & metronidazole given in ED - Continue ceftriaxone and metronidazole daily - Start IVF: NS @100mL - Morphine 2mg IVP Q4H PRN for severe pain - Zofran 4mg PO Q8H PRN for nausea - GI consult: Dr. Denton - Diet: NPO - Monitor CBC, CMP, Mg, Phos DMT2 - Start medium dose insulin sliding scale - Hold home metformin - Accucheck ACHS - Hypoglycemic protocol - F/U HgbA1c UTI - Urinalysis: [id number], LE=trace, WBC=5-10, Epithelial cells=4-5, Bacteria=occult - Ceftriaxone on board - F/U Urine culture HTN - Start: losartan HLD - Hold: atorvastatin 40mg PO daily DVT/GI ppx: Lovenox/Protonix <Brandee Fuentes - Last Filed: 06/09/18 04:50> Results - Vital Signs Recent Vital Signs: Last Vital Signs Temp 98.4 F 06/08/18 22:25 Pulse 92 H 06/08/18 22:25 Resp 20 06/09/18 01:53 BP 135/75 06/09/18 01:35 Pulse Ox 97 06/08/18 22:25 - Labs Result Diagrams: 06/09/18 01:08 06/09/18 01:08 Labs: Laboratory Results - last 24 hr 06/08/18 06/09/18 06/09/18 23:04 01:08 01:08 WBC 9.2 RBC 4.66 Hgb 12.5 Hct 39.1 MCV 83.9 MCH 26.8 MCHC 32.0 RDW 13.4 Plt Count 240 MPV 8.7 Neut % (Auto) 64.4 Lymph % (Auto) 23.2 [place] % (Auto) 10.7 H Eos % (Auto) 1.5 Baso % (Auto) 0.2 Lymph # (Auto) 2.1 [place] # (Auto) 1.0 H Eos # (Auto) 0.1 Baso # (Auto) 0.02 Absolute Neuts (auto) 5.92 Sodium 137 Potassium 4.4 Chloride 103 Carbon Dioxide 27 Anion Gap 11 BUN 16 Creatinine 0.4 L Est GFR ( Amer) > 60 Est GFR (Non-Af Amer) > 60 Random Glucose 173 H Calcium 9.3 Total Bilirubin 0.4 AST 18 ALT 12 Alkaline Phosphatase 153 H D Total Protein 7.9 Albumin 3.8 Globulin 4.0 Albumin/Globulin Ratio 1.0 L Urine Color Yellow Urine Appearance Clear Urine pH 7.5 Ur Specific [place] 1.020 Urine Protein Negative Urine Glucose (UA) 500 H Urine Ketones Negative Urine Blood Negative Urine Nitrate Negative Urine Bilirubin Negative Urine Urobilinogen 0.2 Ur Leukocyte Esterase Trace H Urine RBC 0 - 2 Urine WBC 5 - 10 H Ur Epithelial Cells 4 - 5 Urine Bacteria Occ Attending/Attestation - Attestation I have personally seen and examined this patient.: Yes I have fully participated in the care of the patient.: Yes I have reviewed all pertinent clinical information: Yes Notes (Text): 06/09/18 04:44 Note: Physical exam reveals tenderness in the RLQ,LLQ suprapubic area and both flanks. Pt seen with the resident by the bed side. Case discussed in detail. Agree with documentation,assessment and plan of treatment.
[2018-06-09 01:50] LABS: ALBUMIN 3.8 g/dL (3.0-4.8); ALT/SGPT 12 U/L (7-56); AST/SGOT 18 U/L (14-36); BLOOD UREA NITROGEN 16 mg/dL (7-21); CALCIUM 9.3 mg/dL (8.4-10.5); GFR NON-AFRICAN AMERICAN > 60
[2018-06-09] MEDS ORDERED: Dextrose 50% SYRINGE Inj (50 ml) IV PRN (02:24)
[2018-06-09] MEDS ORDERED: Sodium Chloride 0.9% 100 ML IV SCH (02:30)
[2018-06-09] MEDS: Morphine 2 mg/ml ISec IVP PRN (03:05)
[2018-06-09] MEDS: Sodium Chloride 0.9% 1,000 ML IV SCH ×2 (03:05→17:03)
[2018-06-09] MEDS: Pantoprazole 40 mg EC Tab PO SCH (05:46)
[2018-06-09] MEDS: metroNIDAZOLE IV 500 mg/100 ml 500 MG/100 ML BAG IVPB SCH ×3 (05:47→21:04)
[2018-06-09 06:09] LABS: BARBITURATES, UR NEGATIVE (NEGATIVE); BENZODIAZEPINES, UR NEGATIVE (NEGATIVE); OPIATES, UR POSITIVE (NEGATIVE); PHENCYCLIDINE, UR NEGATIVE (NEGATIVE)
--- NOTE | 2018-06-09 10:05 | CT ---
Date of service: 06/08/2018 PROCEDURE: CT Abdomen and Pelvis without intravenous contrast HISTORY: flank pain COMPARISON: None. TECHNIQUE: Without contrast.. Contrast dose: Radiation dose: Total exam DLP = 609.77 mGy-cm. This CT exam was performed using one or more of the following dose reduction techniques: Automated exposure control, adjustment of the mA and/or kV according to patient size, and/or use of iterative reconstruction technique. FINDINGS: LOWER THORAX: Unremarkable. LIVER: Unremarkable. No gross lesion or ductal dilatation. GALLBLADDER AND BILE DUCTS: Unremarkable. PANCREAS: Unremarkable. No gross lesion or ductal dilatation. SPLEEN: Unremarkable. ADRENALS: Unremarkable. No mass. KIDNEYS AND URETERS: Unremarkable. No hydronephrosis. No solid mass. VASCULATURE: Unremarkable. No aortic aneurysm. Minimal aortic calcification BOWEL: There is acute diverticulitis in the sigmoid colon with mural thickening and mesenteric stranding. There is no evidence of abscess formation. APPENDIX: Unremarkable. Normal appendix. PERITONEUM: Unremarkable. No free fluid. No free air. LYMPH NODES: Unremarkable. No enlarged lymph nodes. BLADDER: Unremarkable. REPRODUCTIVE: Unremarkable. BONES: No acute fracture. Disc degeneration with mild anterolisthesis at L5-S1. There is a bilateral pars defect OTHER FINDINGS: The report concurs with the preliminary [facility] report IMPRESSION: There is acute diverticulitis in the sigmoid colon with mural thickening and mesenteric stranding. There is no evidence of abscess formation. Spondylolysis and spondylolisthesis at L5-S1
[2018-06-09] MEDS: Insulin Regular 1 UNITS/0.01 ML ML SC SCH ×4 (10:07→23:05)
[2018-06-09] MEDS: Enoxaparin 40 mg Syringe SC SCH (10:07)
--- NOTE | 2018-06-09 13:13 | CP.PCM.CON ---
History of Present Illness - History of Present Illness History of Present Illness: Surgery Progress Note for Dr. Sherman Patient is a 63 yo female w/ PMH of Diverticulosis, Diverticulitis, HTN, DM, HLD admitted to hospital for abdominal pain. Daughter was at bedside that offered translation assistance. Admits to abdominal pain located mostly in the left lower quadrant and radiating down towards the suprapubic area. Admits to prior episodes of this in the past. States her pain is sharp, 9/10 pain, denies diarrhea or bloody bowel movements. Discussed Denies fevers, chills, chest pain, sob, n/v, constipation or diarrhea, and dysuria. PMH: Diverticulosis, Diverticulitis, HTN, DM, HLD PSH: Most recent colonoscopy was about 6 years ago. Patient states she has a colonoscopy scheduled on SH: Denies smoking, alcohol, drug use Allergies: NKDA Meds: Lopressor, Atorvastatin, Metformin Patient was discharged on the following from 11/18/17 admission: flagyl, ceftriaxone, miralax Review of Systems - Review of Systems All systems: reviewed and no additional remarkable complaints except Review of Systems: see HPI Past Patient History - Infectious Disease Hx of Infectious Diseases: None - Past Social History Smoking Status: Never Smoked - CARDIAC Hx Cardiac Disorders: Yes Hx Hypertension: Yes - PULMONARY Hx Respiratory Disorders: No - NEUROLOGICAL Hx Neurological Disorder: No - HEENT Hx HEENT Problems: No - RENAL Hx Chronic Kidney Disease: No - ENDOCRINE/METABOLIC Hx Endocrine Disorders: Yes Hx Diabetes Mellitus Type 1: Yes - HEMATOLOGICAL/ONCOLOGICAL Hx Blood Disorders: No - INTEGUMENTARY Hx Dermatological Problems: No - MUSCULOSKELETAL/RHEUMATOLOGICAL Hx Musculoskeletal Disorders: No Hx Falls: No - GASTROINTESTINAL Hx Gastrointestinal Disorders: Yes Hx Diverticulitis: Yes Other/Comment: gastritis - GENITOURINARY/GYNECOLOGICAL Hx Genitourinary Disorders: No Hx Urinary Tract Infection: Yes - PSYCHIATRIC Hx Psychophysiologic Disorder: No Hx Substance Use: No - SURGICAL HISTORY Hx Surgeries: No - ANESTHESIA Hx Anesthesia: No Meds Allergies/Adverse Reactions: Allergies Allergy/AdvReac Type Severity Reaction Status Date / Time No Known Allergies Allergy Verified 11/18/17 19:42 - Medications Medications: Current Medications Dextrose (Dextrose 50% Inj) 0 ml IV STAT PRN; Protocol PRN Reason: Hypoglycemia Protocol Enoxaparin Sodium (Lovenox) 40 mg SC DAILY [facility]; Protocol Last Admin: 06/09/18 10:07 Dose: 40 mg Dextrose (Dextrose 5% In Water 1000 Ml) 1,000 mls @ 0 mls/hr IV .Q0M PRN; Protocol PRN Reason: Hypoglycemia Protocol Metronidazole (Flagyl) 500 mg in 100 mls @ 100 mls/hr IVPB Q8 [facility]; Protocol Last Admin: 06/09/18 05:47 Dose: 100 mls/hr Ceftriaxone Sodium (Rocephin 1 Gram Ivpb) 1 gm in 100 mls @ 100 mls/hr IVPB DAILY [facility]; Protocol Sodium Chloride (Sodium Chloride 0.9%) 1,000 mls @ 80 mls/hr IV .[id number] [facility] Last Admin: 06/09/18 03:05 Dose: 80 mls/hr Insulin Human Regular (Humulin R) 0 units SC ACHS [facility]; Protocol Last Admin: 06/09/18 12:09 Dose: Not Given Losartan Potassium (Cozaar) 25 mg PO DAILY [facility] Last Admin: 06/09/18 10:07 Dose: 25 mg Morphine Sulfate (Morphine) 2 mg IVP Q4H PRN PRN Reason: Pain, severe (8-10) Last Admin: 06/09/18 03:05 Dose: 2 mg Ondansetron HCl (Zofran Odt) 4 mg PO Q8H PRN PRN Reason: Nausea/Vomiting Pantoprazole Sodium (Protonix Ec Tab) 40 mg PO 0600 [facility] Last Admin: 06/09/18 05:46 Dose: 40 mg Polyethylene Glycol (Miralax) 17 gm PO BID [facility] Physical Exam - Constitutional Appears: No Acute Distress - Head Exam Head Exam: NORMAL INSPECTION - Eye Exam Eye Exam: EOMI, Normal appearance - ENT Exam ENT Exam: Mucous Membranes Moist - Respiratory Exam Respiratory Exam: NORMAL BREATHING PATTERN - Cardiovascular Exam Cardiovascular Exam: +S1, +S2 - GI/Abdominal Exam GI & Abdominal Exam: Soft, Tenderness Additional comments: left upper and lower quadrant pain tenderness suprapubic tenderness minimal pain on right upper and lower quadrant - Extremities Exam Extremities exam: Positive for: normal inspection - Neurological Exam Neurological exam: Alert, Oriented x3 - Psychiatric Exam Psychiatric exam: Normal Affect, Normal Mood - Skin Skin Exam: Intact, Normal Color Results - Vital Signs Recent Vital Signs: Last Vital Signs Temp 97.8 F 06/09/18 06:00 Pulse 72 06/09/18 10:07 Resp 17 06/09/18 06:00 BP 118/72 06/09/18 10:07 Pulse Ox 97 06/09/18 06:00 - Labs Result Diagrams: 06/09/18 01:08 06/09/18 01:08 Labs: Laboratory Results - last 24 hr 06/08/18 06/09/18 06/09/18 23:04 01:08 01:08 WBC 9.2 RBC 4.66 Hgb 12.5 Hct 39.1 MCV 83.9 MCH 26.8 MCHC 32.0 RDW 13.4 Plt Count 240 MPV 8.7 Neut % (Auto) 64.4 Lymph % (Auto) 23.2 [place] % (Auto) 10.7 H Eos % (Auto) 1.5 Baso % (Auto) 0.2 Lymph # (Auto) 2.1 [place] # (Auto) 1.0 H Eos # (Auto) 0.1 Baso # (Auto) 0.02 Absolute Neuts (auto) 5.92 Sodium 137 Potassium 4.4 Chloride 103 Carbon Dioxide 27 Anion Gap 11 BUN 16 Creatinine 0.4 L Est GFR ( Amer) > 60 Est GFR (Non-Af Amer) > 60 POC Glucose (mg/dL) Random Glucose 173 H Calcium 9.3 Total Bilirubin 0.4 AST 18 ALT 12 Alkaline Phosphatase 153 H D Total Protein 7.9 Albumin 3.8 Globulin 4.0 Albumin/Globulin Ratio 1.0 L Urine Color Yellow Urine Appearance Clear Urine pH 7.5 Ur Specific [place] 1.020 Urine Protein Negative Urine Glucose (UA) 500 H Urine Ketones Negative Urine Blood Negative Urine Nitrate Negative Urine Bilirubin Negative Urine Urobilinogen 0.2 Ur Leukocyte Esterase Trace H Urine RBC 0 - 2 Urine WBC 5 - 10 H Ur Epithelial Cells 4 - 5 Urine Bacteria Occ Urine Opiates Screen Urine Methadone Screen Ur Barbiturates Screen Ur Phencyclidine Scrn Ur Amphetamines Screen U Benzodiazepines Scrn U Oth Cocaine Metabols U Cannabinoids Screen 06/09/18 06/09/18 06/09/18 03:37 08:12 11:46 WBC RBC Hgb Hct MCV MCH MCHC RDW Plt Count MPV Neut % (Auto) Lymph % (Auto) [place] % (Auto) Eos % (Auto) Baso % (Auto) Lymph # (Auto) [place] # (Auto) Eos # (Auto) Baso # (Auto) Absolute Neuts (auto) Sodium Potassium Chloride Carbon Dioxide Anion Gap BUN Creatinine Est GFR ( Amer) Est GFR (Non-Af Amer) POC Glucose (mg/dL) 85 99 Random Glucose Calcium Total Bilirubin AST ALT Alkaline Phosphatase Total Protein Albumin Globulin Albumin/Globulin Ratio Urine Color Urine Appearance Urine pH Ur Specific [place] Urine Protein Urine Glucose (UA) Urine Ketones Urine Blood Urine Nitrate Urine Bilirubin Urine Urobilinogen Ur Leukocyte Esterase Urine RBC Urine WBC Ur Epithelial Cells Urine Bacteria Urine Opiates Screen Positive H Urine Methadone Screen Negative Ur Barbiturates Screen Negative Ur Phencyclidine Scrn Negative Ur Amphetamines Screen Negative U Benzodiazepines Scrn Negative U Oth Cocaine Metabols Negative U Cannabinoids Screen Negative Assessment & Plan - Assessment and Plan (Free Text) Assessment: 63 yo female w/ PMH Diverticulosis, Diverticulitis, HTN, DM, HLD admitted for abdominal pain. Surgery Consulted for recurrent diverticulitis. Plan: IV abx for diverticulitis, GI input appreciated Consider colonoscopy 6-8 weeks s/p treatment of diverticulitis Discussed with patient surgical options pending results of colonoscopy No acute surgical intervention necessary at this time unless patient decompensates Further recs as per Dr. Sherman PGY-1 Carolann White
[2018-06-09] MEDS: POLYETHYLENE GLYCOL 3350 17 GM/Dose PACKET PO SCH ×2 (13:42→17:02)
--- NOTE | 2018-06-09 15:59 | CON ---
DATE: 06/09/2018 HISTORY OF PRESENT ILLNESS: I saw Ms. Crow this morning. She is a 63-year-old female with past medical history diverticulosis, diverticulitis, diabetes, hypertension who presented to the hospital at 4 days of increasing abdominal pain. The patient denied any rectal bleeding or hematemesis before coming into the hospital. At the bedside this morning the patient indicates the abdomen is protuberant, she is having trouble passing gas and she has pain in the flanks bilaterally as well as anteriorly in the deep right lower and left lower quadrants. PHYSICAL EXAMINATION: VITAL SIGNS: I reviewed this patient's vital signs. HEENT: dry mouth. LUNGS: Decreased breath sounds at bases. HEART: Regular rhythm. ABDOMEN: Protuberant, tender in the area of the deep right lower quadrant, still palpated in the area of the right upper quadrant above the umbilicus also the left upper quadrant. Palpation of the area to the left periumbilical indicates a fullness which extends deep in the left lower quadrant. LABORATORY DATA: I reviewed the patient's laboratory data which consists of a white count 9, H and H 12 and 39. Chemistry indicates mild increase in alk phos, otherwise noncontributory. Blood sugar 173. CT scan indicates a diffuse fecal impaction extending from the area of the cecum all the way through the area of the mid-descending colon. There is a stranding of the area of the sigmoid as well as a irregularity in the wall of sigmoid including diverticulosis. Overall impression is, diverticulitis involving the distal descending as well as sigmoid colon including a fecal impaction. ASSESSMENT: A 63-year-old female here for complaints of abdominal pain most likely due to diverticulitis of distal colon. She is currently on antibiotic therapy which includes metronidazole and ceftriaxone. She is currently n.p.o. She will be followed up by house staff and surgery probably later on this morning. Michael Denton DO, PhD [facility]
[2018-06-10] MEDS: metroNIDAZOLE IV 500 mg/100 ml 500 MG/100 ML BAG IVPB SCH ×3 (05:32→21:18)
[2018-06-10] MEDS: Pantoprazole 40 mg EC Tab PO SCH (05:33)
[2018-06-10] MEDS: Sodium Chloride 0.9% 1,000 ML IV SCH (05:51)
[2018-06-10 06:36] LABS: BASO # 0.02 K/mm3 (0.0-2.0); BASO % 0.4 % (0.0-3.0); EOS # 0.2 (0.0-0.7); EOS % 3.3 % (1.5-5.0); HEMOGLOBIN 12.6 g/dL (12.0-16.0); LYMPH # 2.1 (1.2-3.4); LYMPH % 39.7 % (22.0-35.0); MEAN CELL VOLUME 83.5 fl (80.0-105.0); MEAN CORPUSCULAR HEMOGLOBIN 26.3 pg (25.0-35.0); MEAN CORPUSCULAR HGB CONC 31.5 g/dl (31.0-37.0); MEAN PLATELET VOLUME 8.9 fl (7.0-11.0); MONO # 0.5 (0.1-0.6); MONO % 8.7 % (1.0-6.0); RBC 4.79 10^6/uL (3.5-6.1); RED CELL DISTRIBUTION WIDTH 13.3 % (11.5-14.5); WHITE BLOOD COUNT 5.2 10^3/uL (4.5-11.0)
[2018-06-10 07:10] LABS: ALT/SGPT 17 U/L (7-56); AST/SGOT 31 U/L (14-36); BLOOD UREA NITROGEN 12 mg/dL (7-21); CALCIUM 9.1 mg/dL (8.4-10.5); GFR NON-AFRICAN AMERICAN > 60; LIPASE 117 U/L (23-300)
--- NOTE | 2018-06-10 07:23 | CP.PCM.PN ---
<Pop Duncan L - Last Filed: 06/10/18 21:01> Subjective - Date & Time of Evaluation Date of Evaluation: 06/10/18 Time of Evaluation: 07:23 - Subjective Subjective: Resident Progress Note for Hospitalist Service Patient examined at bedside. No acute events overnight. Patient states she is still having intermittent left lower quadrant pain. Patient did have bowel movement overnight. Denies fevers, chills, chest pain, shortness of breath, nausea, vomiting, diarrhea, dysuria. Objective - Vital Signs/Intake and Output Vital Signs (last 24 hours): Temp Pulse Resp BP Pulse Ox 72 F L 72 20 133/73 97 06/09/18 16:00 06/09/18 16:00 06/09/18 16:00 06/09/18 16:00 06/09/18 16:00 Intake and Output: 06/10/18 06/10/18 06:59 18:59 Intake Total 960 Balance 960 - Medications Medications: Current Medications Acetaminophen (Tylenol 325mg Tab) 650 mg PO Q6H PRN PRN Reason: Headache Last Admin: 06/09/18 21:41 Dose: 650 mg Dextrose (Dextrose 50% Inj) 0 ml IV STAT PRN; Protocol PRN Reason: Hypoglycemia Protocol Enoxaparin Sodium (Lovenox) 40 mg SC DAILY [facility]; Protocol Last Admin: 06/09/18 10:07 Dose: 40 mg Dextrose (Dextrose 5% In Water 1000 Ml) 1,000 mls @ 0 mls/hr IV .Q0M PRN; Protocol PRN Reason: Hypoglycemia Protocol Metronidazole (Flagyl) 500 mg in 100 mls @ 100 mls/hr IVPB Q8 [facility]; Protocol Last Admin: 06/10/18 05:32 Dose: 100 mls/hr Ceftriaxone Sodium (Rocephin 1 Gram Ivpb) 1 gm in 100 mls @ 100 mls/hr IVPB D AILY [facility]; Protocol Sodium Chloride (Sodium Chloride 0.9%) 1,000 mls @ 80 mls/hr IV .[id number] [facility] Last Admin: 06/10/18 05:51 Dose: 80 mls/hr Insulin Human Regular (Humulin R) 0 units SC ACHS [facility]; Protocol Last Admin: 06/09/18 23:05 Dose: Not Given Losartan Potassium (Cozaar) 25 mg PO DAILY [facility] Last Admin: 06/09/18 10:07 Dose: 25 mg Morphine Sulfate (Morphine) 2 mg IVP Q4H PRN PRN Reason: Pain, severe (8-10) Last Admin: 06/09/18 03:05 Dose: 2 mg Ondansetron HCl (Zofran Odt) 4 mg PO Q8H PRN PRN Reason: Nausea/Vomiting Pantoprazole Sodium (Protonix Ec Tab) 40 mg PO 0600 [facility] Last Admin: 06/10/18 05:33 Dose: 40 mg Polyethylene Glycol (Miralax) 17 gm PO BID [facility] Last Admin: 06/09/18 17:02 Dose: 17 gm - Labs Labs: 06/10/18 06:00 06/10/18 06:00 - Additional Findings Additional findings: - Constitutional Appears: Non-toxic, No Acute Distress - Head Exam Head Exam: ATRAUMATIC, NORMOCEPHALIC - Eye Exam Eye Exam: EOMI, Normal appearance - ENT Exam ENT Exam: Mucous Membranes Moist, Normal Exam - Respiratory Exam Respiratory Exam: Clear to Auscultation Bilateral, NORMAL BREATHING PATTERN. absent: Rhonchi, Wheezes, Respiratory Distress - Cardiovascular Exam Cardiovascular Exam: REGULAR RHYTHM, +S1, +S2 - GI/Abdominal Exam GI & Abdominal Exam: Normal Bowel Sounds, Soft, Tenderness (LLQ tenderness). absent: Distended, Firm, Guarding - Extremities Exam Extremities exam: Positive for: normal inspection. Negative for: joint swelling, pedal edema, tenderness - Neurological Exam Neurological exam: Alert, Normal Gait, Oriented x3 - Psychiatric Exam Psychiatric exam: Normal Affect, Normal Mood - Skin Skin Exam: Dry, Intact, Normal Color, Warm Assessment and Plan - Assessment and Plan (Free Text) Assessment: Patient is a 63 year old female with past medical history of diverculitis, T2DM, HTN, HLD admitted for management of diverticulitis. Plan: Diverticulitis - CT Abdomen and Pelvis: * There is no evidence for obstructive uropathy. * There is inflammatory stranding adjacent to the sigmoid colon where there is extensive underlying diverticular disease. This is compatible with acute diverticulitis. No convincing evidence for perforation or organized abscess. * More proximally, the colon demonstrates constipation. - afebrile, no leukocytosis - BCx neg x2 - continue ceftriaxone and metronidazole daily - IVF NS @ 100 ccs/hr - Morphine 2mg IVP Q4H PRN for severe pain - Zofran 4mg PO Q8H PRN for nausea - GI consult: Dr. Denton - advanced to liquid diet T2DM - hold home metformin - ISS, Accucheck ACHS - HgbA1c 9.5 UTI - Urinalysis: [id number], LE=trace, WBC=5-10, Epithelial cells=4-5, Bacteria=occult - Ceftriaxone 1 gm IV daily - UCx shows no growth HTN - Losartan 25 mg PO daily HLD - hold atorvastatin 40 mg PO daily PPX - Lovenox, Protonix Case discussed with Dr. Addison Duncan PGY-1 <Grace Jaime R - Last Filed: 06/12/18 14:50> Objective - Vital Signs/Intake and Output Vital Signs (last 24 hours): Temp Pulse Resp BP Pulse Ox 97.5 F L 70 20 135/83 95 06/12/18 06:00 06/12/18 06:00 06/12/18 06:00 06/12/18 06:00 06/12/18 06:00 Intake and Output: 06/12/18 06/12/18 06:59 18:59 Intake Total 240 Balance 240 - Labs Labs: 06/12/18 08:19 06/12/18 08:19 Attending/Attestation - Attestation I have personally seen and examined this patient.: Yes I have fully participated in the care of the patient.: Yes I have reviewed all pertinent clinical information, including history, physical exam and plan: Yes Notes (Text): Patient seen and examined by me with resident at approximately 11:15 AM on 06/10/18. Case including HPI, physical exam, and assessment and plan discussed with resident. Agree with above with following additions/corrections. Patient is a 63-year-old female with past medical history significant for diverticulosis, diverticulitis, type 2 diabetes, hypertension, and hyperlipidemia that presented to the emergency room with abdominal pain. Patient states she feels a little better today. Still with abdominal pain. Also with some nausea. No vomiting. Patient states that she did have a bowel movem ent. Denies chest pain or shortness of breath. No headaches or dizziness. No fevers or chills. No dysuria. Physical exam: General: Awake and alert sitting up in bed in no acute distress HEENT: Normocephalic, atraumatic. Extraocular muscles intact, pupils equal and reactive, no scleral icterus. Oropharynx is pink and moist. No pharyngeal erythema or exudate appreciated. Neck is supple. Cardiovascular: Regular rhythm. Normal S1 and S2. No murmurs, rubs, or gallops appreciated Pulmonary: Normal respiratory effort. No rhonchi, rales, or wheezing appreciated. Gastrointestinal: Soft, nondistended. Left lower quadrant tenderness with palpation. Positive bowel sounds all 4 quadrants. No guarding. Musculoskeletal: Moves all extremities. No calf tenderness. No edema appreciated. Central nervous system: AAOx3. Dermatologic: Skin warm and dry. Assessment and plan:Patient is a 63-year-old female with past medical history significant for diverticulosis, diverticulitis, type 2 diabetes, hypertension, and hyperlipidemia that presented to the emergency room with abdominal pain. 1. Acute diverticulitis, recurernt. Abdominal pain. CT abd/pelvis per radiologist showed acute diverticulitis in the sigmoid colon with mural thickening and mesenteric stranding, no evidence of abscess formation, s pondylolysis and spondylolisthesis at L5-S1. GI following, recommendations appreciated. Surgical team recommendations appreciated. Will start on clear liquids today. Continue Rocephin and Flagyl. 2. Constipation. Continue MiraLAX. 3. Type 2 diabetes. Continue insulin sliding scale. Continue to monitor Accu- Cheks. 4. Essential hypertension. Continue Cozaar. 5. Hyperlipidemia. Patient to continue home Lipitor upon discharge. 6. Abnormal urinalysis. Patient asymptomatic. Urine culture with no growth. 7. GI/DVT prophylaxis. Protonix/Lovenox 8. Patient is a full code Case was discussed in detail with the patient regarding current diagnosis and treatment plan. All questions answered.
--- NOTE | 2018-06-10 07:55 | PN ---
DATE: 06/10/2018 SUBJECTIVE: I saw Ms. Crow this morning. She is a 63-year-old female with complaints of severe diffuse abdominal pain, but most severe in the area of the left lower quadrant. At the bedside this morning, the patient indicates some degree of decrease in the amount of pain, but still significant. There is no hematemesis or rectal bleeding noted. PHYSICAL EXAMINATION: VITAL SIGNS: I reviewed this patient's vital signs. HEENT: Noncontributory, except for dry mouth. LUNGS: Decreased breath sounds at bases. HEART: Regular rhythm. ABDOMEN: Soft. No tenderness elicited in the right upper and right lower quadrant. She is still exhibiting some tenderness when pressing the periumbilical down to the left lower quadrant. There is still a substantial fullness noted in the left paraumbilical and the left lower quadrant. LABORATORY DATA: I reviewed this patient's laboratory results. I reviewed surgical consultation notes. It indicates no acute surgical intervention needed at this particular time point. OVERALL ASSESSMENT AND PLAN: This is a 63-year-old female with complaints of abdominal pain secondary to distal descending colon and sigmoid diverticulitis. She seems to be making progress on current antibiotic therapy, which includes ceftriaxone and metronidazole. Michael Denton DO, PhD MTDLeisa
--- NOTE | 2018-06-10 08:22 | CP.PCM.PN ---
Subjective - Date & Time of Evaluation Date of Evaluation: 06/10/18 Time of Evaluation: 07:00 - Subjective Subjective: Rui Ann, PGY-[address] Sherman Patient seen and evaluated at bedside. No acute events reported overnight. Reports lower abdominal pain but denies fevers, chills, N/V, diarrhea, constipation. Objective - Vital Signs/Intake and Output Vital Signs (last 24 hours): Temp Pulse Resp BP Pulse Ox 72 F L 72 20 133/73 97 06/09/18 16:00 06/09/18 16:00 06/09/18 16:00 06/09/18 16:00 06/09/18 16:00 Intake and Output: 06/10/18 06/10/18 06:59 18:59 Intake Total 960 Balance 960 - Medications Medications: Current Medications Acetaminophen (Tylenol 325mg Tab) 650 mg PO Q6H PRN PRN Reason: Headache Last Admin: 06/09/18 21:41 Dose: 650 mg Dextrose (Dextrose 50% Inj) 0 ml IV STAT PRN; Protocol PRN Reason: Hypoglycemia Protocol Enoxaparin Sodium (Lovenox) 40 mg SC DAILY [facility]; Protocol Last Admin: 06/09/18 10:07 Dose: 40 mg Dextrose (Dextrose 5% In Water 1000 Ml) 1,000 mls @ 0 mls/hr IV .Q0M PRN; Protocol PRN Reason: Hypoglycemia Protocol Metronidazole (Flagyl) 500 mg in 100 mls @ 100 mls/hr IVPB Q8 [facility]; Protocol Last Admin: 06/10/18 05:32 Dose: 100 mls/hr Ceftriaxone Sodium (Rocephin 1 Gram Ivpb) 1 gm in 100 mls @ 100 mls/hr IVPB DAILY [facility]; Protocol Sodium Chloride (Sodium Chloride 0.9%) 1,000 mls @ 80 mls/hr IV .[id number] [facility] Last Admin: 06/10/18 05:51 Dose: 80 mls/hr Insulin Human Regular (Humulin R) 0 units SC ACHS [facility]; Protocol Last Admin: 06/09/18 23:05 Dose: Not Given Losartan Potassium (Cozaar) 25 mg PO DAILY [facility] Last Admin: 06/09/18 10:07 Dose: 25 mg Morphine Sulfate (Morphine) 2 mg IVP Q4H PRN PRN Reason: Pain, severe (8-10) Last Admin: 06/09/18 03:05 Dose: 2 mg Ondansetron HCl (Zofran Odt) 4 mg PO Q8H PRN PRN Reason: Nausea/Vomiting Pantoprazole Sodium (Protonix Ec Tab) 40 mg PO 0600 [facility] Last Admin: 06/10/18 05:33 Dose: 40 mg Polyethylene Glycol (Miralax) 17 gm PO BID [facility] Last Admin: 06/09/18 17:02 Dose: 17 gm - Labs Labs: 06/10/18 06:00 06/10/18 06:00 - Additional Findings Additional findings: - Constitutional Appears: No Acute Distress - Head Exam Head Exam: NORMAL INSPECTION - Eye Exam Eye Exam: EOMI, Normal appearance - ENT Exam ENT Exam: Mucous Membranes Moist - Respiratory Exam Respiratory Exam: NORMAL BREATHING PATTERN - Cardiovascular Exam Cardiovascular Exam: +S1, +S2 - GI/Abdominal Exam GI & Abdominal Exam: Soft, Tenderness Additional comments: improved left upper and lower quadrant pain tenderness, suprapubic tenderness - Extremities Exam Extremities exam: Positive for: normal inspection - Neurological Exam Neurological exam: Alert, Oriented x3 - Psychiatric Exam Psychiatric exam: Normal Affect, Normal Mood - Skin Skin Exam: Intact, Normal Color Assessment and Plan - Assessment and Plan (Free Text) Assessment: 63 yo female w/ PMH Diverticulosis, Diverticulitis, HTN, DM, HLD admitted for abdominal pain. Pain improved. Surgery Consulted for recurrent diverticulitis. Plan: - IV abx for diverticulitis, GI input appreciated - Medical management per primary team - Consider colonoscopy 6-8 weeks s/p treatment of diverticulitis - Discussed with patient surgical options pending results of future colonoscopy - No acute surgical intervention necessary at this time Further recs as per Dr. Lane Ann, PGY-1
[2018-06-10] MEDS: POLYETHYLENE GLYCOL 3350 17 GM/Dose PACKET PO SCH ×2 (10:10→18:32)
[2018-06-10] MEDS: Enoxaparin 40 mg Syringe SC SCH (10:10)
[2018-06-10] MEDS: cefTRIAXone 1 gm 1 GM/100 ML BAG IVPB SCH (10:10)
[2018-06-10] MEDS: Insulin Regular 1 UNITS/0.01 ML ML SC SCH ×4 (10:14→22:42)
[2018-06-10] MEDS: Morphine 2 mg/ml ISec IVP PRN (10:21)
[2018-06-11] MEDS: Sodium Chloride 0.9% 1,000 ML IV SCH (05:12)
[2018-06-11] MEDS: metroNIDAZOLE IV 500 mg/100 ml 500 MG/100 ML BAG IVPB SCH ×3 (05:13→21:32)
[2018-06-11] MEDS: Pantoprazole 40 mg EC Tab PO SCH (06:43)
[2018-06-11 07:04] LABS: BASO # 0.02 K/mm3 (0.0-2.0); BASO % 0.4 % (0.0-3.0); EOS # 0.2 (0.0-0.7); EOS % 3.3 % (1.5-5.0); HEMOGLOBIN 13.2 g/dL (12.0-16.0); LYMPH # 1.8 (1.2-3.4); LYMPH % 38.5 % (22.0-35.0); MEAN CELL VOLUME 82.9 fl (80.0-105.0); MEAN CORPUSCULAR HEMOGLOBIN 26.6 pg (25.0-35.0); MEAN PLATELET VOLUME 8.7 fl (7.0-11.0); MONO # 0.4 (0.1-0.6); MONO % 7.5 % (1.0-6.0); RBC 4.97 10^6/uL (3.5-6.1); RED CELL DISTRIBUTION WIDTH 13.2 % (11.5-14.5); WHITE BLOOD COUNT 4.8 10^3/uL (4.5-11.0)
--- NOTE | 2018-06-11 07:24 | CP.PCM.PN ---
<Pop Duncan L - Last Filed: 06/11/18 14:20> Subjective - Date & Time of Evaluation Date of Evaluation: 06/11/18 Time of Evaluation: 07:24 - Subjective Subjective: Resident Progress Note for Hospitalist Service Patient examined at bedside. No acute events overnight. Patient states she had a bowel movement with small amount of soft stool. She is tolerating clear liquid diet with no nausea or vomiting. Plan to advance to full liquid diet. Denies fevers, chills, chest pain, shortness of breath, dysuria. Objective - Vital Signs/Intake and Output Vital Signs (last 24 hours): Temp Pulse Resp BP Pulse Ox 98 F 70 20 154/79 H 95 06/10/18 19:47 06/10/18 19:47 06/10/18 19:47 06/10/18 19:47 06/10/18 19:47 Intake and Output: 06/11/18 06/11/18 06:59 18:59 Intake Total 240 Balance 240 - Medications Medications: Current Medications Acetaminophen (Tylenol 325mg Tab) 650 mg PO Q6H PRN PRN Reason: Headache Last Admin: 06/09/18 21:41 Dose: 650 mg Dextrose (Dextrose 50% Inj) 0 ml IV STAT PRN; Protocol PRN Reason: Hypoglycemia Protocol Enoxaparin Sodium (Lovenox) 40 mg SC DAILY [facility]; Protocol Last Admin: 06/10/18 10:10 Dose: 40 mg Dextrose (Dextrose 5% In Water 1000 Ml) 1,000 mls @ 0 mls/hr IV .Q0M PRN; Protocol PRN Reason: Hypoglycemia Protocol Metronidazole (Flagyl) 500 mg in 100 mls @ 100 mls/hr IVPB Q8 [facility]; Protocol Last Admin: 06/11/18 05:13 Dose: 100 mls/hr Ceftriaxone Sodium (Rocephin 1 Gram Ivpb) 1 gm in 100 mls @ 100 mls/hr IVPB DAILY [facility]; Protocol Last Admin: 06/10/18 10:10 Dose: 100 mls/hr Sodium Chloride (Sodium Chloride 0.9%) 1,000 mls @ 80 mls/hr IV .[id number] [facility] Last Admin: 06/11/18 05:12 Dose: 80 mls/hr Insulin Human Regular (Humulin R) 0 units SC ACHS [facility]; Protocol Last Admin: 06/10/18 22:42 Dose: Not Given Losartan Potassium (Cozaar) 25 mg PO DAILY [facility] Last Admin: 06/10/18 10:11 Dose: 25 mg Morphine Sulfate (Morphine) 2 mg IVP Q4H PRN PRN Reason: Pain, severe (8-10) Last Admin: 06/10/18 10:21 Dose: 2 mg Ondansetron HCl (Zofran Odt) 4 mg PO Q8H PRN PRN Reason: Nausea/Vomiting Last Admin: 06/10/18 10:21 Dose: 4 mg Pantoprazole Sodium (Protonix Ec Tab) 40 mg PO 0600 [facility] Last Admin: 06/11/18 06:43 Dose: 40 mg Polyethylene Glycol (Miralax) 17 gm PO BID [facility] Last Admin: 06/10/18 18:32 Dose: 17 gm - Labs Labs: 06/11/18 06:30 06/10/18 06:00 - Additional Findings Additional findings: - Constitutional Appears: Non-toxic, No Acute Distress - Head Exam Head Exam: ATRAUMATIC, NORMOCEPHALIC - Eye Exam Eye Exam: EOMI, Normal appearance - ENT Exam ENT Exam: Mucous Membranes Moist, Normal Exam - Respiratory Exam Respiratory Exam: Clear to Auscultation Bilateral, NORMAL BREATHING PATTERN. absent: Rhonchi, Wheezes, Respiratory Distress - Cardiovascular Exam Cardiovascular Exam: REGULAR RHYTHM, +S1, +S2 - GI/Abdominal Exam GI & Abdominal Exam: Normal Bowel Sounds, Soft, Tenderness (LLQ tenderness). absent: Distended, Firm, Guarding - Extremities Exam Extremities exam: Positive for: normal inspection. Negative for: joint swelling, pedal edema, tenderness - Neurological Exam Neurological exam: Alert, Normal Gait, Oriented x3 - Psychiatric Exam Psychiatric exam: Normal Affect, Normal Mood - Skin Skin Exam: Dry, Intact, Normal Color, Warm Assessment and Plan - Assessment and Plan (Free Text) Assessment: Patient is a 63 year old female with past medical history of diverculitis, T2DM, HTN, HLD admitted for management of diverticulitis. Plan: Diverticulitis - CT Abdomen and Pelvis: * There is no evidence for obstructive uropathy. * There is inflammatory stranding adjacent to the sigmoid colon where there is extensive underlying diverticular disease. This is compatible with acute diverticulitis. No convincing evidence for perforation or organized abscess. * More proximally, the colon demonstrates constipation. - afebrile, no leukocytosis - BCx neg x2 - continue ceftriaxone and metronidazole daily - IVF NS @ 100 ccs/hr - Morphine 2mg IVP Q4H PRN for severe pain - Zofran 4mg PO Q8H PRN for nausea - GI consult: Dr. Denton - advance to full liquid diet T2DM - hold home metformin - ISS, Accucheck ACHS - HgbA1c 9.5 UTI - Urinalysis: [id number], LE=trace, WBC=5-10, Epithelial cells=4-5, Bacteria=occult - Ceftriaxone 1 gm IV daily - UCx shows no growth HTN - Losartan 25 mg PO daily HLD - hold atorvastatin 40 mg PO daily PPX - Lovenox, Protonix Case discussed with Dr. Addison Duncan PGY-1 <Grace Jaime R - Last Filed: 06/12/18 14:56> Objective - Vital Signs/Intake and Output Vital Signs (last 24 hours): Temp Pulse Resp BP Pulse Ox 97.5 F L 70 20 135/83 95 06/12/18 06:00 06/12/18 06:00 06/12/18 06:00 06/12/18 06:00 06/12/18 06:00 Intake and Output: 06/12/18 06/12/18 06:59 18:59 Intake Total 240 Balance 240 - Labs Labs: 06/12/18 08:19 06/12/18 08:19 Attending/Attestation - Attestation I have personally seen and examined this patient.: Yes I have fully participated in the care of the patient.: Yes I have reviewed all pertinent clinical information, including history, physical exam and plan: Yes Notes (Text): Patient seen and examined by me with resident at approximately 9:50 AM on 06/11/18. Case including HPI, physical exam, and assessment and plan discussed with resident. Agree with above with following additions/corrections. Patient is a 63-year-old female with past medical history significant for diverticulosis, diverticulitis, type 2 diabetes, hypertension, and hyperlipidemia that presented to the emergency room with abdominal pain. Patient states she continues to feel better slowly. Still with some abdominal pain but improved. Nausea also improved. Tolerated clear liquid diet. No vomiting. States she had a bowel movement. Denies chest pain or shortness of breath. No headaches or dizziness. No fevers or chills. No dysuria. Physical exam: General: Awake and alert sitting up in bed in no acute distress HEENT: Normocephalic, atraumatic. Extraocular muscles intact, pupils equal and reactive, no scleral icterus. Oropharynx is pink and moist. No pharyngeal erythema or exudate appreciated. Neck is supple. Cardiovascular: Regular rhythm. Normal S1 and S2. No murmurs, rubs, or gallops appreciated Pulmonary: Normal respiratory effort. No rhonchi, rales, or wheezing ap preciated. Gastrointestinal: Soft, nondistended. Left lower quadrant tenderness with palpation. Positive bowel sounds all 4 quadrants. No guarding. Musculoskeletal: Moves all extremities. No calf tenderness. No edema appreciated. Central nervous system: AAOx3. Dermatologic: Skin warm and dry. Assessment and plan:Patient is a 63-year-old female with past medical history significant for diverticulosis, diverticulitis, type 2 diabetes, hypertension, and hyperlipidemia that presented to the emergency room with abdominal pain. 1. Acute diverticulitis, recurrent. Abdominal pain. Advance diet to full liquid diet. Continue Rocephin and Flagyl. CT abd/pelvis per radiologist showed acute diverticulitis in the sigmoid colon with mural thickening and mesenteric stranding, no evidence of abscess formation, spondylolysis and spondylolisthesis at L5-S1. GI following, recommendations appreciated. Surgical team recommendations appreciated. 2. Constipation. Improved. Continue MiraLAX. 3. Type 2 diabetes. Continue insulin sliding scale. Continue to monitor Accu- Cheks. 4. Essential hypertension. Continue Cozaar. 5. Hyperlipidemia. Patient to continue home Lipitor upon discharge. 6. Abnormal urinalysis. Patient asymptomatic. Urine culture with no growth. 7. GI/DVT prophylaxis. Protonix/Lovenox 8. Patient is a full code Case was discussed in detail with the patient regarding current diagnosis and treatment plan. All questions answered.
--- NOTE | 2018-06-11 07:50 | PN ---
DATE: 06/11/2018 SUBJECTIVE: I examined Ms. Crow this morning. She is a 63-year-old female admitted with complaints of severe abdominal pain, found to have diverticulitis involving the descending colon as well as the sigmoid. The patient has been making progress with decreasing abdominal pain, it was roughly 4/10. Decreased abdominal distention as well. She has minimal discomfort on walking. She has no nausea, vomiting, or rectal bleeding. PHYSICAL EXAMINATION VITAL SIGNS: I reviewed this patient's vital signs. HEENT: Noncontributory, except for dry mouth. LUNGS: Decreased breath sounds at the base. HEART: Regular rhythm. ABDOMEN: Soft. Mild tension in the epigastric area. No tenderness elicited in the right upper or right lower quadrants. Palpitation of the periumbilical area still with discomfort in the left lower quadrant as well as a fullness noted in the left paraumbilical extending into the left lower quadrant. LABORATORY DATA: Indicates decrease in white count as of yesterday. H and H stable. Chemistry, noncontributory. ASSESSMENT AND PLAN: A 63-year-old female admitted with diverticulitis of the distal descending as well as the sigmoid. Making progress on the current regimen, which includes ceftriaxone and metronidazole. Continue with the same regimen. The patient is making progress clinically, so advance diet, to include very small portions of full liquid. This is assuming pain and nausea permit. Michael Denton DO, PhD MTDLeisa
[2018-06-11 07:52] LABS: ALT/SGPT 20 U/L (7-56); AST/SGOT 39 U/L (14-36); BLOOD UREA NITROGEN 10 mg/dL (7-21); GFR NON-AFRICAN AMERICAN > 60
--- NOTE | 2018-06-11 08:10 | CP.PCM.PN ---
Subjective - Date & Time of Evaluation Date of Evaluation: 06/11/18 Time of Evaluation: 08:07 - Subjective Subjective: Surgery Progress Note for Dr. Sherman S/E at bedside. Complains of episodes of diarrhea and mild pain in the left lower quadrant. Denies bloody bowel movements. Denies fevers, chills, chest pain, sob, n/v, constipation or diarrhea, and dysuria. Objective - Vital Signs/Intake and Output Vital Signs (last 24 hours): Temp Pulse Resp BP Pulse Ox 98 F 70 20 154/79 H 95 06/10/18 19:47 06/10/18 19:47 06/10/18 19:47 06/10/18 19:47 06/10/18 19:47 Intake and Output: 06/11/18 06/11/18 06:59 18:59 Intake Total 240 Balance 240 - Medications Medications: Current Medications Acetaminophen (Tylenol 325mg Tab) 650 mg PO Q6H PRN PRN Reason: Headache Last Admin: 06/09/18 21:41 Dose: 650 mg Dextrose (Dextrose 50% Inj) 0 ml IV STAT PRN; Protocol PRN Reason: Hypoglycemia Protocol Enoxaparin Sodium (Lovenox) 40 mg SC DAILY [facility]; Protocol Last Admin: 06/10/18 10:10 Dose: 40 mg Dextrose (Dextrose 5% In Water 1000 Ml) 1,000 mls @ 0 mls/hr IV .Q0M PRN; Protocol PRN Reason: Hypoglycemia Protocol Metronidazole (Flagyl) 500 mg in 100 mls @ 100 mls/hr IVPB Q8 [facility]; Protocol Last Admin: 06/11/18 05:13 Dose: 100 mls/hr Ceftriaxone Sodium (Rocephin 1 Gram Ivpb) 1 gm in 100 mls @ 100 mls/hr IVPB DAILY [facility]; Protocol Last Admin: 06/10/18 10:10 Dose: 100 mls/hr Sodium Chloride (Sodium Chloride 0.9%) 1,000 mls @ 80 mls/hr IV .[id number] [facility] Last Admin: 06/11/18 05:12 Dose: 80 mls/hr Insulin Human Regular (Humulin R) 0 units SC ACHS [facility]; Protocol Last Admin: 06/10/18 22:42 Dose: Not Given Losartan Potassium (Cozaar) 25 mg PO DAILY [facility] Last Admin: 06/10/18 10:11 Dose: 25 mg Morphine Sulfate (Morphine) 2 mg IVP Q4H PRN PRN Reason: Pain, severe (8-10) Last Admin: 06/10/18 10:21 Dose: 2 mg Ondansetron HCl (Zofran Odt) 4 mg PO Q8H PRN PRN Reason: Nausea/Vomiting Last Admin: 06/10/18 10:21 Dose: 4 mg Pantoprazole Sodium (Protonix Ec Tab) 40 mg PO 0600 [facility] Last Admin: 06/11/18 06:43 Dose: 40 mg Polyethylene Glycol (Miralax) 17 gm PO BID [facility] Last Admin: 06/10/18 18:32 Dose: 17 gm - Labs Labs: 06/11/18 06:30 06/11/18 06:30 - Constitutional Appears: Non-toxic, No Acute Distress - Head Exam Head Exam: NORMAL INSPECTION, NORMOCEPHALIC - Eye Exam Eye Exam: EOMI, Normal appearance. absent: Nystagmus, Scleral icterus - ENT Exam ENT Exam: Mucous Membranes Dry - Respiratory Exam Respiratory Exam: NORMAL BREATHING PATTERN - Cardiovascular Exam Cardiovascular Exam: REGULAR RHYTHM - GI/Abdominal Exam GI & Abdominal Exam: Soft, Tenderness - Back Exam Back Exam: NORMAL INSPECTION - Neurological Exam Neurological Exam: Alert, Awake - Psychiatric Exam Psychiatric exam: Normal Affect - Skin Skin Exam: Intact, Normal Color Assessment and Plan - Assessment and Plan (Free Text) Assessment: 63 yo female w/ PMH of HTN, DM, HLD, Diverticulosis and Diverticulitis admitted for abdominal pain. Plan: Continue IV abx Continue medical management as per primary team Recommend colonoscopy 6-8 weeks after diverticulitis infection resolved Consider surgical intervention pending CSPY results and discussion with patient due to recurrent diverticulitis No surgical intervention warranted currently Further recs as per Dr. Sherman PGY-1 Carolann White
[2018-06-11] MEDS: POLYETHYLENE GLYCOL 3350 17 GM/Dose PACKET PO SCH (09:38)
[2018-06-11] MEDS: Enoxaparin 40 mg Syringe SC SCH (09:38)
[2018-06-11] MEDS: Insulin Regular 1 UNITS/0.01 ML ML SC SCH ×4 (09:38→21:10)
[2018-06-11] MEDS: cefTRIAXone 1 gm 1 GM/100 ML BAG IVPB SCH (09:39)
[2018-06-11] MEDS ORDERED: POLYETHYLENE GLYCOL 3350 17 GM/Dose PACKET PO PRN (09:58)
[2018-06-11 19:37] VITALS: PULSE 70
[2018-06-12] MEDS: Pantoprazole 40 mg EC Tab PO SCH (05:12)
[2018-06-12] MEDS: metroNIDAZOLE IV 500 mg/100 ml 500 MG/100 ML BAG IVPB SCH (05:12)
--- NOTE | 2018-06-12 06:12 | PN ---
DATE: 06/12/2018 SUBJECTIVE: I saw Ms. Crow this morning. She is a 63-year-old female with complaints of diverticulitis involving the area of distal descending colon and sigmoid. The patient is improving on current antibiotic regimen which consist of ceftriaxone and metronidazole. The patient indicated that the abdomen is less distended. No rectal bleeding, hematemesis. Pain currently rated this morning roughly about 3 out of 10. There is no fever or chills. PHYSICAL EXAMINATION VITAL SIGNS: I reviewed this patient's vital signs. HEENT: Noncontributory. LUNGS: Decreased breath sounds at the base. HEART: Regular rhythm. ABDOMEN: Soft. No tenderness elicited in the right upper or right lower quadrant. Still has very mild discomfort on palpating the umbilicus which radiates to the left lower quadrant. Still fullness noted in the left periumbilical and left lower quadrant. LABORATORY DATA: The patient's laboratory data through yesterday including CBC and chemistries reviewed. I reviewed the report of Dr. Duncan. ASSESSMENT AND PLAN: This is a 63-year-old female admitted with complaints of abdominal pain secondary to diverticulitis involving the sigmoid and distal descending colon. The patient made progress on current regimen, would continue on the same. If the patient does well for breakfast and lunch today, may consider advancing to small portions of soft starting roughly dinner time tonight. If the patient is discharged, she should remain on a regimen consisting of probably Augmentin 500 b.i.d., metronidazole 500 t.i.d. for at least another 10 days or so. Obviously she will need a colonoscopy at some later date which is probably about 6 to 8 weeks after the patient is discharged. Michael Denton DO, PhD KINDRA
[2018-06-12 08:01] VITALS: BP 135/83; RESP 20; TEMP 97.5; O2SAT 95
[2018-06-12 08:40] LABS: BASO # 0.02 K/mm3 (0.0-2.0); BASO % 0.4 % (0.0-3.0); EOS # 0.2 (0.0-0.7); EOS % 4.4 % (1.5-5.0); HEMOGLOBIN 13.1 g/dL (12.0-16.0); LYMPH # 1.7 (1.2-3.4); LYMPH % 37.3 % (22.0-35.0); MEAN CELL VOLUME 82.7 fl (80.0-105.0); MEAN CORPUSCULAR HEMOGLOBIN 26.4 pg (25.0-35.0); MEAN PLATELET VOLUME 8.9 fl (7.0-11.0); MONO # 0.5 (0.1-0.6); MONO % 10.4 % (1.0-6.0); RBC 4.96 10^6/uL (3.5-6.1); RED CELL DISTRIBUTION WIDTH 13.3 % (11.5-14.5); WHITE BLOOD COUNT 4.5 10^3/uL (4.5-11.0)
[2018-06-12 08:49] LABS: ALBUMIN 3.9 g/dL (3.0-4.8); ALT/SGPT 27 U/L (7-56); AST/SGOT 64 U/L (14-36); BLOOD UREA NITROGEN 11 mg/dL (7-21); CALCIUM 9.3 mg/dL (8.4-10.5); GFR NON-AFRICAN AMERICAN > 60
--- NOTE | 2018-06-12 09:11 | CP.PCM.PN ---
Subjective - Date & Time of Evaluation Date of Evaluation: 06/12/18 Time of Evaluation: 06:30 - Subjective Subjective: Patient seen and examined. No events over night. Having BMs. No longer has abdominal pain/tenderness. Tolerating liquid diet. Objective - Vital Signs/Intake and Output Vital Signs (last 24 hours): Temp Pulse Resp BP Pulse Ox 97.5 F L 70 20 135/83 95 06/12/18 06:00 06/12/18 06:00 06/12/18 06:00 06/12/18 06:00 06/12/18 06:00 Intake and Output: 06/12/18 06/12/18 06:59 18:59 Intake Total 240 Balance 240 - Medications Medications: Current Medications Acetaminophen (Tylenol 325mg Tab) 650 mg PO Q6H PRN PRN Reason: Headache Last Admin: 06/11/18 21:31 Dose: 650 mg Dextrose (Dextrose 50% Inj) 0 ml IV STAT PRN; Protocol PRN Reason: Hypoglycemia Protocol Enoxaparin Sodium (Lovenox) 40 mg SC DAILY [facility]; Protocol Last Admin: 06/11/18 09:38 Dose: 40 mg Dextrose (Dextrose 5% In Water 1000 Ml) 1,000 mls @ 0 mls/hr IV .Q0M PRN; Protocol PRN Reason: Hypoglycemia Protocol Ceftriaxone Sodium (Rocephin 1 Gram Ivpb) 1 gm in 100 mls @ 100 mls/hr IVPB DAILY [facility]; Protocol Last Admin: 06/11/18 09:39 Dose: 100 mls/hr Insulin Human Regular (Humulin R) 0 units SC ACHS [facility]; Protocol Last Admin: 06/11/18 21:10 Dose: Not Given Losartan Potassium (Cozaar) 25 mg PO DAILY [facility] Last Admin: 06/11/18 09:37 Dose: 25 mg Morphine Sulfate (Morphine) 2 mg IVP Q4H PRN PRN Reason: Pain, severe (8-10) Last Admin: 06/10/18 10:21 Dose: 2 mg Ondansetron HCl (Zofran Odt) 4 mg PO Q8H PRN PRN Reason: Nausea/Vomiting Last Admin: 06/10/18 10:21 Dose: 4 mg Pantoprazole Sodium (Protonix Ec Tab) 40 mg PO 0600 [facility] Last Admin: 06/12/18 05:12 Dose: 40 mg Polyethylene Glycol (Miralax) 17 gm PO BID PRN PRN Reason: Constipation - Labs Labs: 06/12/18 08:19 06/12/18 08:19 - Constitutional Appears: No Acute Distress - Head Exam Head Exam: NORMOCEPHALIC - Eye Exam Eye Exam: EOMI, Normal appearance - ENT Exam ENT Exam: Mucous Membranes Moist - Cardiovascular Exam Cardiovascular Exam: +S1, +S2 - GI/Abdominal Exam GI & Abdominal Exam: Soft. absent: Tenderness - Psychiatric Exam Psychiatric exam: Normal Mood - Skin Skin Exam: Dry, Intact, Warm Assessment and Plan - Assessment and Plan (Free Text) Assessment: 63 yo female w/ diverticulitis Plan: ADAT No plans for surgical intervention F/u w/ GI Further recs per Dr. Lane Villalpando PGY3
[2018-06-12] MEDS: Insulin Regular 1 UNITS/0.01 ML ML SC SCH (09:50)
[2018-06-12] MEDS: Enoxaparin 40 mg Syringe SC SCH (09:50)
[2018-06-12] MEDS: cefTRIAXone 1 gm 1 GM/100 ML BAG IVPB SCH (09:51)
--- NOTE | 2018-06-12 14:45 | CP.PCM.DIS ---
<Pop Duncan - Last Filed: 06/12/18 14:54> Provider - Provider Date of Admission: 06/09/18 01:01 Attending physician: Grace Jaime DO Consults: 06/09/18 02:29 Physician Consult Routine Comment: Consulting Provider: Michael Denton Consulting Physician: Michael Denton Reason for Consult: Diverticulitis 06/09/18 06:43 Physician Consult Routine Comment: Consulting Provider: Clarissa Sherman Consulting Physician: Clarissa Sherman Reason for Consult: diverticulitis Time Spent in preparation of Discharge (in minutes): 35 Diagnosis - Discharge Diagnosis (1) Diverticulitis Status: Acute Hospital Course - Lab Results Lab Results: Micro Results 06/09/18 01:08 Blood-Venous Blood Culture - Preliminary NO GROWTH AFTER 3 DAYS 06/09/18 00:30 Blood-Venous Blood Culture - Preliminary NO GROWTH AFTER 3 DAYS 06/08/18 23:04 Urine,Clean Catch Urine Culture - Final No Growth (<1,000 CFU/ML) Most Recent Lab Values WBC 4.5 10^3/uL (4.5-11.0) 06/12/18 08:19 RBC 4.96 10^6/uL (3.5-6.1) 06/12/18 08:19 Hgb 13.1 g/dL (12.0-16.0) 06/12/18 08:19 Hct 41.0 % (36.0-48.0) 06/12/18 08:19 MCV 82.7 fl (80.0-105.0) 06/12/18 08:19 MCH 26.4 pg (25.0-35.0) 06/12/18 08:19 MCHC 32.0 g/dl (31.0-37.0) 06/12/18 08:19 RDW 13.3 % (11.5-14.5) 06/12/18 08:19 Plt Count 293 10^3/uL (120.0-450.0) 06/12/18 08:19 MPV 8.9 fl (7.0-11.0) 06/12/18 08:19 Neut % (Auto) 47.5 % (50.0-68.0) L 06/12/18 08:19 Lymph % (Auto) 37.3 % (22.0-35.0) H 06/12/18 08:19 Reagan % (Auto) 10.4 % (1.0-6.0) H 06/12/18 08:19 Eos % (Auto) 4.4 % (1.5-5.0) 06/12/18 08:19 Baso % (Auto) 0.4 % (0.0-3.0) 06/12/18 08:19 Lymph # (Auto) 1.7 (1.2-3.4) 06/12/18 08:19 Reagan # (Auto) 0.5 (0.1-0.6) 06/12/18 08:19 Eos # (Auto) 0.2 (0.0-0.7) 06/12/18 08:19 Baso # (Auto) 0.02 K/mm3 (0.0-2.0) 06/12/18 08:19 Absolute Neuts (auto) 2.14 (1.4-6.5) 06/12/18 08:19 Sodium 139 mmol/L (132-148) 06/12/18 08:19 Potassium 3.9 mmol/L (3.6-5.0) 06/12/18 08:19 Chloride 102 mmol/L (98-107) 06/12/18 08:19 Carbon Dioxide 28 mmol/L (21-33) 06/12/18 08:19 Anion Gap 12 (10-20) 06/12/18 08:19 BUN 11 mg/dL (7-21) 06/12/18 08:19 Creatinine 0.5 mg/dl (0.7-1.2) L 06/12/18 08:19 Est GFR ( Amer) > 60 06/12/18 08:19 Est GFR (Non-Af Amer) > 60 06/12/18 08:19 POC Glucose (mg/dL) 203 mg/dL (65-110) H 06/12/18 11:30 Random Glucose 178 mg/dL (70-110) H 06/12/18 08:19 Hemoglobin A1c 9.5 % (4.2-6.5) H 06/10/18 06:00 Calcium 9.3 mg/dL (8.4-10.5) 06/12/18 08:19 Phosphorus 3.3 mg/dL (2.5-4.5) 06/10/18 06:00 Magnesium 2.0 mg/dL (1.7-2.2) 06/10/18 06:00 Total Bilirubin 0.7 mg/dL (0.2-1.3) 06/12/18 08:19 AST 64 U/L (14-36) H D 06/12/18 08:19 ALT 27 U/L (7-56) 06/12/18 08:19 Alkaline Phosphatase 97 U/L (38-126) 06/12/18 08:19 Total Protein 8.0 g/dL (5.8-8.3) 06/12/18 08:19 Albumin 3.9 g/dL (3.0-4.8) 06/12/18 08:19 Globulin 4.1 gm/dL 06/12/18 08:19 Albumin/Globulin Ratio 1.0 (1.1-1.8) L 06/12/18 08:19 Lipase 117 U/L (23-300) 06/10/18 06:00 Urine Color Yellow (YELLOW) 06/08/18 23:04 Urine Appearance Clear (CLEAR) 06/08/18 23:04 Urine pH 7.5 (4.7-8.0) 06/08/18 23:04 Ur Specific [place] 1.020 (1.005-1.035) 06/08/18 23:04 Urine Protein Negative mg/dL (<30 mg/dL) 06/08/18 23:04 Urine Glucose (UA) 500 mg/dL (NEGATIVE) H 06/08/18 23:04 Urine Ketones Negative mg/dL (NEGATIVE) 06/08/18 23:04 Urine Blood Negative (NEGATIVE) 06/08/18 23:04 Urine Nitrate Negative (NEGATIVE) 06/08/18 23:04 Urine Bilirubin Negative (NEGATIVE) 06/08/18 23:04 Urine Urobilinogen 0.2 E.U./dL (<1 E.U./dL) 06/08/18 23:04 Ur Leukocyte Esterase Trace Brandie/uL (NEGATIVE) H 06/08/18 23:04 Urine RBC 0 - 2 /hpf (0-2) 06/08/18 23:04 Urine WBC 5 - 10 /hpf (0-6) H 06/08/18 23:04 Ur Epithelial Cells 4 - 5 /hpf (0-5) 06/08/18 23:04 Urine Bacteria Occ /hpf (NONE) 06/08/18 23:04 Urine Opiates Screen Positive (NEGATIVE) H 06/09/18 03:37 Urine Methadone Screen Negative (NEGATIVE) 06/09/18 03:37 Ur Barbiturates Screen Negative (NEGATIVE) 06/09/18 03:37 Ur Phencyclidine Scrn Negative (NEGATIVE) 06/09/18 03:37 Ur Amphetamines Screen Negative (NEGATIVE) 06/09/18 03:37 U Benzodiazepines Scrn Negative (NEGATIVE) 06/09/18 03:37 U Oth Cocaine Metabols Negative (NEGATIVE) 06/09/18 03:37 U Cannabinoids Screen Negative (NEGATIVE) 06/09/18 03:37 - Hospital Course Hospital Course: On admission: 63-year-old Female with PMH of Diverticulosis, Diverticulitis, DM, HTN, HLD presents to ED with complaints of abdominal pain. Patient's daughter is at bedside and with the permission of the Patient, Patient's daughter is present during examination. Patient says she started having suprapubic tenderness in the setting of dysuria and bilateral flank pain. Patient states her pain is intermittent and localized suprapubically, sharp in quality and radiates towards bilateral lower quadrants and bilateral flank. Patient states she has a colonoscopy scheduled later this week. ROS is otherwise unremarkable for kidney stones, fever, chills, chest pain, shortness of breath, nausea, vomiting, diarrhea, neck pain, headache, and/or dizziness. During hospital stay: Patient was started on ceftriaxone and metronidazole. CT abdomen pelvis showed no evidence of obstructive uropathy, inflammatory stranding adjacent to the sigmoid where there is extensive underlying diverticular disease, compatible with acute diverticulitis. No convincing evidence for perforation or organized abscess. Blood cultures were negative x2. IV fluids were given in addition to morphine and zofran. GI was consulted. Patient was advanced from clear liquid to full liquid to soft diet. Patient improved clinically, tolerated diet with no nausea or vomiting. Patient was optimized for discharge and instructed to take augmentin and metronidazole as prescribed. Discharge Exam - Additional Findings Additional findings: - Constitutional Appears: Non-toxic, No Acute Distress - Head Exam Head Exam: ATRAUMATIC, NORMOCEPHALIC - Eye Exam Eye Exam: EOMI, Normal appearance - ENT Exam ENT Exam: Mucous Membranes Moist, Normal Exam - Respiratory Exam Respiratory Exam: Clear to Auscultation Bilateral, NORMAL BREATHING PATTERN. absent: Rhonchi, Wheezes, Respiratory Distress - Cardiovascular Exam Cardiovascular Exam: REGULAR RHYTHM, +S1, +S2 - GI/Abdominal Exam GI & Abdominal Exam: Normal Bowel Sounds, Soft, Tenderness (mild, improved). absent: Distended, Firm, Guarding - Extremities Exam Extremities exam: Positive for: normal inspection. Negative for: joint swelling, pedal edema, tenderness - Neurological Exam Neurological exam: Alert, Normal Gait, Oriented x3 - Psychiatric Exam Psychiatric exam: Normal Affect, Normal Mood - Skin Skin Exam: Dry, Intact, Normal Color, Warm Discharge Plan - Discharge Medications Prescriptions: Amoxicillin/Clavulanate [Augmentin 500 MG-125 MG] 1 tab PO BID 10 Days #20 tab metroNIDAZOLE [Flagyl] 500 mg PO TID 10 Days #30 tab - Follow Up Plan Condition: FAIR Disposition: HOME/ ROUTINE Instructions: Diverticulitis (DC) Additional Instructions: Follow up with your primary medical doctor, Dr. Fuentes at the [facility]3] within 3-5 days. Also follow up with the procedures tech (Dr. Denton) within 1 week. You will need a colonoscopy to follow up on your diverticulitis in approximately 6-8 weeks Continue with a soft, bland diet and SLOWLY advance diet as tolerated. Please take antibiotics as prescribed: Augmentin 500 mg twice a day and Metronidazole 500 mg three times a day for 10 days (please do not drink any alcohol with these medication as they can make you very sick). Return to ED if symptoms return. Referrals: Brandee Fuentes MD [Medical Doctor] - Michael Denton DO [Staff Provider] - <Grace Jaime - Last Filed: 06/15/18 10:59> Provider - Provider Date of Admission: 06/09/18 01:01 Attending physician: Grace Jaime DO Consults: 06/09/18 02:29 Physician Consult Routine Comment: Consulting Provider: Michael Denton Consulting Physician: Michael Denton Reason for Consult: Diverticulitis 06/09/18 06:43 Physician Consult Routine Comment: Consulting Provider: Clarissa Sherman Consulting Physician: Clarissa Sherman Reason for Consult: diverticulitis Hospital Course - Lab Results Lab Results: Micro Results 06/09/18 01:08 Blood-Venous Blood Culture - Final NO GROWTH AFTER 5 DAYS 06/09/18 01:08 Blood-Venous Gram Stain - Final TEST NOT PERFORMED 06/09/18 00:30 Blood-Venous Blood Culture - Final NO GROWTH AFTER 5 DAYS 06/09/18 00:30 Blood-Venous Gram Stain - Final TEST NOT PERFORMED 06/08/18 23:04 Urine,Clean Catch Urine Culture - Final No Growth (<1,000 CFU/ML) Most Recent Lab Values WBC 4.5 10^3/uL (4.5-11.0) 06/12/18 08:19 RBC 4.96 10^6/uL (3.5-6.1) 06/12/18 08:19 Hgb 13.1 g/dL (12.0-16.0) 06/12/18 08:19 Hct 41.0 % (36.0-48.0) 06/12/18 08:19 MCV 82.7 fl (80.0-105.0) 06/12/18 08:19 MCH 26.4 pg (25.0-35.0) 06/12/18 08:19 MCHC 32.0 g/dl (31.0-37.0) 06/12/18 08:19 RDW 13.3 % (11.5-14.5) 06/12/18 08:19 Plt Count 293 10^3/uL (120.0-450.0) 06/12/18 08:19 MPV 8.9 fl (7.0-11.0) 06/12/18 08:19 Neut % (Auto) 47.5 % (50.0-68.0) L 06/12/18 08:19 Lymph % (Auto) 37.3 % (22.0-35.0) H 06/12/18 08:19 Reagan % (Auto) 10.4 % (1.0-6.0) H 06/12/18 08:19 Eos % (Auto) 4.4 % (1.5-5.0) 06/12/18 08:19 Baso % (Auto) 0.4 % (0.0-3.0) 06/12/18 08:19 Lymph # (Auto) 1.7 (1.2-3.4) 06/12/18 08:19 Reagan # (Auto) 0.5 (0.1-0.6) 06/12/18 08:19 Eos # (Auto) 0.2 (0.0-0.7) 06/12/18 08:19 Baso # (Auto) 0.02 K/mm3 (0.0-2.0) 06/12/18 08:19 Absolute Neuts (auto) 2.14 (1.4-6.5) 06/12/18 08:19 Sodium 139 mmol/L (132-148) 06/12/18 08:19 Potassium 3.9 mmol/L (3.6-5.0) 06/12/18 08:19 Chloride 102 mmol/L (98-107) 06/12/18 08:19 Carbon Dioxide 28 mmol/L (21-33) 06/12/18 08:19 Anion Gap 12 (10-20) 06/12/18 08:19 BUN 11 mg/dL (7-21) 06/12/18 08:19 Creatinine 0.5 mg/dl (0.7-1.2) L 06/12/18 08:19 Est GFR ( Amer) > 60 06/12/18 08:19 Est GFR (Non-Af Amer) > 60 06/12/18 08:19 POC Glucose (mg/dL) 203 mg/dL (65-110) H 06/12/18 11:30 Random Glucose 178 mg/dL (70-110) H 06/12/18 08:19 Hemoglobin A1c 9.5 % (4.2-6.5) H 06/10/18 06:00 Calcium 9.3 mg/dL (8.4-10.5) 06/12/18 08:19 Phosphorus 3.3 mg/dL (2.5-4.5) 06/10/18 06:00 Magnesium 2.0 mg/dL (1.7-2.2) 06/10/18 06:00 Total Bilirubin 0.7 mg/dL (0.2-1.3) 06/12/18 08:19 AST 64 U/L (14-36) H D 06/12/18 08:19 ALT 27 U/L (7-56) 06/12/18 08:19 Alkaline Phosphatase 97 U/L (38-126) 06/12/18 08:19 Total Protein 8.0 g/dL (5.8-8.3) 06/12/18 08:19 Albumin 3.9 g/dL (3.0-4.8) 06/12/18 08:19 Globulin 4.1 gm/dL 06/12/18 08:19 Albumin/Globulin Ratio 1.0 (1.1-1.8) L 06/12/18 08:19 Lipase 117 U/L (23-300) 06/10/18 06:00 Urine Color Yellow (YELLOW) 06/08/18 23:04 Urine Appearance Clear (CLEAR) 06/08/18 23:04 Urine pH 7.5 (4.7-8.0) 06/08/18 23:04 Ur Specific [place] 1.020 (1.005-1.035) 06/08/18 23:04 Urine Protein Negative mg/dL (<30 mg/dL) 06/08/18 23:04 Urine Glucose (UA) 500 mg/dL (NEGATIVE) H 06/08/18 23:04 Urine Ketones Negative mg/dL (NEGATIVE) 06/08/18 23:04 Urine Blood Negative (NEGATIVE) 06/08/18 23:04 Urine Nitrate Negative (NEGATIVE) 06/08/18 23:04 Urine Bilirubin Negative (NEGATIVE) 06/08/18 23:04 Urine Urobilinogen 0.2 E.U./dL (<1 E.U./dL) 06/08/18 23:04 Ur Leukocyte Esterase Trace Brandie/uL (NEGATIVE) H 06/08/18 23:04 Urine RBC 0 - 2 /hpf (0-2) 06/08/18 23:04 Urine WBC 5 - 10 /hpf (0-6) H 06/08/18 23:04 Ur Epithelial Cells 4 - 5 /hpf (0-5) 06/08/18 23:04 Urine Bacteria Occ /hpf (NONE) 06/08/18 23:04 Urine Opiates Screen Positive (NEGATIVE) H 06/09/18 03:37 Urine Methadone Screen Negative (NEGATIVE) 06/09/18 03:37 Ur Barbiturates Screen Negative (NEGATIVE) 06/09/18 03:37 Ur Phencyclidine Scrn Negative (NEGATIVE) 06/09/18 03:37 Ur Amphetamines Screen Negative (NEGATIVE) 06/09/18 03:37 U Benzodiazepines Scrn Negative (NEGATIVE) 06/09/18 03:37 U Oth Cocaine Metabols Negative (NEGATIVE) 06/09/18 03:37 U Cannabinoids Screen Negative (NEGATIVE) 06/09/18 03:37 Attending/Attestation - Attestation I have personally seen and examined this patient.: Yes I have fully participated in the care of the patient.: Yes I have reviewed all pertinent clinical information, including history, physical exam and plan: Yes Notes (Text): Please note this DC summary is for 06/12/18 Patient seen and examined by me with resident at approximately 9:20AM and prior to discharge on 06/12/18. Case including discharge plan discussed with resident. Agree with above with following additions/corrections. Patient is a 63-year-old female with past medical history significant for diverticulosis, diverticulitis, type 2 diabetes, hypertension, and hyperlipidemia that presented to the emergency room with abdominal pain. Please see H&P for full details. Patient was found to have recurrent acute diverticulitis, constipation, DM2, essential hypertension, hyperlipidemia, and abnormal urinalysis. CT abdomen/pelvis per radiologist showed acute diverticulitis in the sigmoid colon with mural thickening and mesenteric stranding, no evidence of abscess formation, spondylolysis and spondylolisthesis at L5-S1. Patient was seen by procedures tech. Patient was treated with IV fluids. Diet was advanced slowly. Patient was seen by surgical team who recommended outpatient colonoscopy. Patient was continued on Rocephin and Flagyl. Patient was treated with MiraLAX for constipation which resolved. Patient was continued on Cozaar for hypertension. Patient did have an abnormal urinalysis, patient was asymptomatic, and urine culture showed no growth. Patient had no leukocytosis. Patient remained afebrile. Patient was doing better. Patient was tolerating diet. Pain resolved. Patient was cleared for discharge by GI on 10 more days of antibiotics. Patient was discharged home. On the day of discharge, patient stated she was feeling much better. Patient was tolerating diet. No nausea or vomiting. Abdominal pain resolved. Patient denied chest pain and palpitations. No shortness of breath. Patient denied headaches or dizziness. No fevers or chills. No dysuria. Patient was having bowel movements. Physical exam: General: Awake and alert lying in bed in no acute distress HEENT: Normocephalic, atraumatic. Extraocular muscles intact, pupils equal and reactive, no scleral icterus. Oropharynx is pink moist. No pharyngeal erythema or exudate appreciated. Neck is supple. Cardiovascular: Regular rhythm. Normal S1 and S2. No murmurs, rubs, or gallops appreciated Pulmonary: Normal respiratory effort. No rhonchi, rales, or wheezing appreciated. Gastrointestinal: Soft, nondistended. Nontender. Positive bowel sounds all 4 quadrants. No guarding. Musculoskeletal: Moves all extremities. No calf tenderness. No edema appreciated. Central nervous system: AAOx3. CN 2-12 grossly intact. 5/5 muscle strength all extremities. Dermatologic: Skin warm and dry. Please see chart for full details. Follow up instructions: Patient to follow up with PMD within 3-5 days. Patient to follow up with GI within one week. Patient will need colonoscopy in 6-8 weeks. Patient to complete antibiotics per GI. All instructions explained to the patient in detail. Patient both understands and agrees to all instructions. Written instructions also given. Time spent in discharging the patient including chart review, medication reconciliation, discussion with the patient, medical secretary, consultants, and nursing staff was approximately 45 minutes.
== END 2018-06-12 14:02 | disposition home or self-care (01) | DRG 244 ==
LOC: ED 22:10 → ERH 06-09 01:01 → 3RSO 06-09 01:50
PROVIDERS: ADMIT Hospitalist; ATTEND Hospitalist
DX: K57.32 Diverticulitis of large intestine without perforation or abscess without bleeding (principal); I10 Essential (primary) hypertension; E78.5 Hyperlipidemia, unspecified; E11.9 Type 2 diabetes mellitus without complications; K59.00 Constipation, unspecified; N39.0 Urinary tract infection, site not specified; Z79.82 Long term (current) use of aspirin; Z87.440 Personal history of urinary (tract) infections